=== PATIENT | male | born 1940 | race Caucasian/White ===

== ENCOUNTER 2017-08-30 10:13 | Emergency (ER) | payer MEDICARE, OTHER ==
[2017-08-30] MEDS ORDERED: predniSONE TAB* 20 MG PO ONE (13:24)
[2017-08-30] MEDS ORDERED: Albuterol/Ipratropium NEB.SOL* Albuterol 2.5 MG/Ipratropium 0.5 MG 3 ML INH ONE ×2 (13:24→16:00)
--- NOTE | 2017-08-30 14:38 | RAD ---
INDICATION: Cough COMPARISON: September 23, 2013 TECHNIQUE: PA and lateral dual-energy views were obtained. FINDINGS: Bones/Soft Tissues: There are no acute bony findings. Cardiomediastinal: The cardiomediastinal silhouette is mildly enlarged. Lungs: There are no infiltrates. Pleura: There are no pleural effusions. Other: None IMPRESSION: NO ACTIVE DISEASE.
[2017-08-30 17:34] VITALS: BP 152/87
--- NOTE | 2017-08-30 18:53 | ED ---
Colton Chow Jennifer, scribed for Lev Ness MD on 08/30/17 at 1321 . Shortness of Breath - HPI Summary HPI Summary: The patient is a 77 year old male who presents with shortness of breath and cough that began yesterday. The patient was spray painting his car without masks , and the paint fumes made it difficult to breathe for him. He states his cough produces white phlegm. Patient additionally complains of stuffiness under his chest. He states he uses his nebulizer every morning and night and in between if he has to. The SOB is aggravated by talking, deep breaths, and movement. - History of Current Complaint Chief Complaint: EDShortnessOfBreath Time Seen by Provider: 08/30/17 13:14 Hx Obtained From: Patient Onset/Duration: Sudden Onset, Lasting Days - one day, Still Present, Worse Since Timing: Constant Current Severity: None Aggrevating Factors: Movement, Deep Breaths Alleviating Factors: Oxygen, Other - Nebulizer Associated Signs & Symptoms: Cough (Productive), Chest Pain w/Cough - chest "stuffiness" - Allergy/Home Medications Allergies/Adverse Reactions: Allergies Allergy/AdvReac Type Severity Reaction Status Date / Time Penicillins Allergy Hives Verified 08/30/17 10:27 Home Medications: Home Medications ALPRAZolam TAB* [Xanax TAB*] 0.5 mg PO BID PRN 08/30/17 [History Confirmed 08/30] Atorvastatin* [Lipitor*] 80 mg PO DAILY 08/30/17 [History Confirmed 08/30/17] Hydrochlorothiazide TAB* [Hydrodiuril TAB*] 25 mg PO DAILY 08/30/17 [History Confirmed 08/30/17] Lisinopril TAB* [Prinivil TAB*] 40 mg PO DAILY 08/30/17 [History Confirmed 08/30] Montelukast Sodium TAB* [Singulair TAB*] 10 mg PO DAILY 08/30/17 [History Confirmed 08/30/17] Sotalol TAB* [Betapace 80 MG TAB*] 120 mg PO BID 08/30/17 [History Confirmed ] Warfarin TAB(*) [Coumadin TAB(*)] 5 mg PO SUTUTHSA 08/30/17 [History Confirmed 08/30/17] Warfarin TAB(*) [Coumadin TAB(*)] 7.5 mg PO MOWEFR 08/30/17 [History Confirmed 08/30/17] metFORMIN* [Glucophage 1000 MG TAB *] 1,000 mg PO BID 08/30/17 [History Confirmed 08/30/17] traMADol TAB* [Ultram*] 50 mg PO Q6HR PRN 08/30/17 [History Confirmed 08/30/17] PMH/Surg Hx/FS Hx/Imm Hx Endocrine/Hematology History: Denies: Hx Anticoagulant Therapy, Hx Diabetes, Hx Thyroid Disease Cardiovascular History: Reports: Hx Atrial Fibrillation, Hx Hypercholesterolemia , Hx Hypertension Denies: Hx Pacemaker/ICD Respiratory History: Reports: Hx Asthma, Hx Chronic Obstructive Pulmonary Disease (COPD) GI History: Reports: Hx Gastroesophageal Reflux Disease, Hx Hiatal Hernia, Hx Ulcer, Other GI Disorders - esophogeal dilation History: Reports: Other Problems/Disorders - frequent urination Denies: Hx Renal Disease Musculoskeletal History: Reports: Hx Arthritis, Hx Back Problems Sensory History: Reports: Hx Contacts or Glasses, Hx Hearing Problem - slightly hard of hearing Opthamlomology History: Reports: Hx Contacts or Glasses Neurological History: Denies: Hx Dementia, Hx Seizures Psychiatric History: Denies: Hx Substance Abuse - Surgical History Surgery Procedure, Year, and Place: Pt. denies - Immunization History Date of Tetanus Vaccine: PT STATES UNSURE Date of Influenza Vaccine: 2012 Infectious Disease History: No Infectious Disease History: Denies: Hx Hepatitis, Hx Human Immunodeficiency Virus (HIV), Traveled Outside the [place] in Last 30 Days - Family History Known Family History: Negative: Renal Disease Family History: Reviewed and non-contributory - Social History Alcohol Use: None Alcohol Amount: 4-6 beers per day Substance Use Type: Reports: None Type: Cigarettes Amount Used/How Often: 1/2 pack day Length of Time of Smoking/Using Tobacco: 60 yrs Have You Smoked in the Last Year: Yes Review of Systems Negative: Fever, Chills Negative: Erythema Negative: Sore Throat Positive: Chest Pain - "stuffiness under chest" Positive: Shortness Of Breath, Cough Negative: Abdominal Pain, Vomiting, Nausea Negative: dysuria, flank pain Negative: Myalgia, Edema Negative: Rash Neurological: Negative - Dizziness All Other Systems Reviewed And Are Negative: Yes Physical Exam - Summary Physical Exam Summary: Constitutional: Well-developed, Well-nourished, Alert. (-) Distressed Skin: Warm, Dry HENT: Normocephalic; Atraumatic Eyes: Conjunctiva normal Neck: Musculoskeletal ROM normal neck. (-) JVD, (-) Stridor, (-) Tracheal deviation Cardio: Rhythm regular, rate normal, Heart sounds normal; Intact distal pulses; The pedal pulses are 2+ and symmetric. Radial pulses are 2+ and symmetric. (-) Murmur Pulmonary/Chest wall: Diminished breath sounds. Small amount of inspiratory and expiratory wheezes. (-) Respiratory distress, (-) Rales Abd: Soft, (-) Tenderness, (-) Distension, (-) Guarding, (-) Rebound Musculoskeletal: (-) Edema Lymph: (-) Cervical adenopathy Neuro: Alert, Oriented x3 Psych: Mood and affect Normal Triage Information Reviewed: Yes Vital Signs On Initial Exam: Initial Vitals Temp Pulse Resp BP Pulse Ox 98.1 F 69 20 133/66 92 08/30/17 10:28 08/30/17 10:28 08/30/17 10:28 08/30/17 10:28 08/30/17 10:28 Vital Signs Reviewed: Yes Diagnostics - Vital Signs Vital Signs Temp Pulse Resp BP Pulse Ox 08/30/17 12:30 97.5 F 63 14 148/73 94 08/30/17 10:28 98.1 F 69 20 133/66 92 - Laboratory Lab Statement: Any lab studies that have been ordered have been reviewed, and results considered in the medical decision making process. - Radiology CXR Xray Interpretation: No Acute Changes - NO ACTIVE DISEASE. Dr. Ness has reviewed this report. Radiology Interpretation Completed By: Radiologist Re-Evaluation - Re-Evaluation First Eval Re-Evaluation Time: 17:22 Change: Improved Comment: Patient reports feeling much better and his lung sounds have improved. Course/Dx - Course Course Of Treatment: The patient is a 77 year old male who presents with shortness of breath and cough that began yesterday after he spray painted his car. In the ED course the patient was given duoneb and deltasone. CXR was obtained. The patient reports feeling better, and his lung sounds have improved. Given the option of admission versus going home and being on oxygen for a few days, patient elected to go home. He will wear 2L oxygen during the day for a few days. The patient is diagnosed with COPD exacerbation. I will prescribe Doxycycline and Prednisone. Patient instructed to follow up with PCP in 2-3 days. - Diagnoses Provider Diagnoses: COPD exacerbation Discharge - Sign-Out/Discharge Documenting (check all that apply): Discharge/Admit/Transfer - Discharge Plan Condition: Stable Disposition: HOME Patient Education Materials: COPD (Chronic Obstructive Pulmonary Disease) (ED) Referrals: Joaquin Terrazas MD [Primary Care Provider] - 3 Days Additional Instructions: up with your primary care physician in three days. RETURN TO THE EMERGENCY DEPARTMENT FOR CHANGING OR WORSENING SYMPTOMS The documentation as recorded by the Colton perry Jennifer accurately reflects the service I personally performed and the decisions made by me, Lev Ness MD.
== END 2017-08-30 17:33 | disposition home or self-care (01) ==
LOC: ED 10:13
DX: J44.1 Chronic obstructive pulmonary disease with (acute) exacerbation (principal); I48.91 Unspecified atrial fibrillation; E78.00 Pure hypercholesterolemia, unspecified; I10 Essential (primary) hypertension; K21.9 Gastro-esophageal reflux disease without esophagitis; Z79.01 Long term (current) use of anticoagulants; F17.210 Nicotine dependence, cigarettes, uncomplicated
CPT/HCPCS: 71046; 99283; A9270-GY; J7512

== ENCOUNTER 2018-07-28 19:37 | Inpatient (IN) | payer MEDICARE, OTHER ==
[2018-07-28] MEDS ORDERED: methylPREDNISolone 125 MG* 2 ML VIAL IV ONE (19:56)
[2018-07-28] MEDS ORDERED: Albuterol 0.5% CONC NEB.SOL* 5 MG/ML 20 ml BOT INH ONE (19:56)
--- NOTE | 2018-07-28 20:06 | ED ---
Shortness of Breath - HPI Summary HPI Summary: This pt is a 78 y/o male, with hx of COPD, presenting to [facility] via EMS for worsening SOB today. Pt reports his SOB began last night. He describes associated productive cough with yellow sputum. Pt also notes diaphoresis. Denies fever, vomiting, chest pain. Pt uses a nebulizer at home, and has used it about 5 times today. He used his nebulizer 6 times yesterday. EMS administered duoneb [employer] with mild relief. Pt is on 3L of oxygen at home. Per family member, pt is still a current smoker. - History of Current Complaint Chief Complaint: EDShortnessOfBreath Time Seen by Provider: 07/28/18 19:49 Hx Obtained From: Patient Onset/Duration: Lasting Hours, Still Present, Worse Since - today Timing: Constant Current Severity: Moderate Dyspnea At: Rest Aggrevating Factors: Nothing Alleviating Factors: Oxygen Associated Signs & Symptoms: Cough (Productive) - Allergy/Home Medications Allergies/Adverse Reactions: Allergies Allergy/AdvReac Type Severity Reaction Status Date / Time Penicillins Allergy Hives Verified 07/28/18 19:55 Home Medications: Home Medications Fluticasone NASAL SPRAY 50MCG* [Flonase NASAL SPRAY 50MCG*] 2 spray BOTH NARES DAILY 07/28/18 [History Confirmed 07/28/18] Furosemide TAB* [Lasix TAB*] 40 mg PO DAILY 07/28/18 [History Confirmed 07/28/18 ] Ketoconazole 2 % CREAM (NF) [Nizoral 2% CREAM (NF)] 1 applic TOPICAL BID [History Confirmed 07/28/18] PMH/Surg Hx/FS Hx/Imm Hx Endocrine/Hematology History: Denies: Hx Anticoagulant Therapy, Hx Diabetes, Hx Thyroid Disease Cardiovascular History: Reports: Hx Atrial Fibrillation, Hx Congestive Heart Failure, Hx Hypercholesterolemia, Hx Hypertension Denies: Hx Pacemaker/ICD Respiratory History: Reports: Hx Asthma, Hx Chronic Obstructive Pulmonary Disease (COPD) GI History: Reports: Hx Gastroesophageal Reflux Disease, Hx Hiatal Hernia, Hx Ulcer, Other GI Disorders - esophogeal dilation History: Reports: Other Problems/Disorders - frequent urination Denies: Hx Renal Disease Musculoskeletal History: Reports: Hx Arthritis, Hx Back Problems Sensory History: Reports: Hx Contacts or Glasses, Hx Hearing Problem - slightly hard of hearing Denies: Hx Hearing Aid Opthamlomology History: Reports: Hx Contacts or Glasses Neurological History: Denies: Hx Dementia, Hx Seizures Psychiatric History: Denies: Hx Substance Abuse - Surgical History Surgery Procedure, Year, and Place: Pt. denies - Immunization History Date of Tetanus Vaccine: PT STATES UNSURE Date of Influenza Vaccine: 2012 Infectious Disease History: No Infectious Disease History: Denies: Hx Hepatitis, Hx Human Immunodeficiency Virus (HIV), Traveled Outside the [place] in Last 30 Days - Family History Known Family History: Negative: Renal Disease - Social History Alcohol Use: Weekly Alcohol Amount: 4-6 beers per day Substance Use Type: Reports: None Smoking Status (MU): Current Some Day Smoker Type: Cigarettes Amount Used/How Often: 1/2 pack day Length of Time of Smoking/Using Tobacco: 60 yrs Have You Smoked in the Last Year: Yes Review of Systems Positive: Skin Diaphoresis. Negative: Fever Negative: Chest Pain Positive: Shortness Of Breath, Cough Negative: Vomiting All Other Systems Reviewed And Are Negative: Yes Physical Exam - Summary Physical Exam Summary: Appearance: Obese and elderly male lying in the stretcher without acute distress. Skin: Warm, dry, no obvious rash Eyes: sclera anicteric, no conjunctival pallor ENT: mucous membranes moist, pharynx appears normal Neck: Supple, nontender Respiratory: Lungs with mildly diminished aeration with expiratory wheezing Cardiovascular: Normal S1, S2. No murmurs. Normal distal pulses in tibial and radial bilaterally. Abdomen: Soft, nontender, normal active bowel sounds present Musculoskeletal: Normal, Strength/ROM Intact Neurological: A&Ox3, awake and alert, mentation is normal, speech is fluent and appropriate Psychiatric: affect is normal, does not appear anxious or depressed Triage Information Reviewed: Yes Vital Signs On Initial Exam: Initial Vitals Temp Pulse Resp BP Pulse Ox 98.7 F 70 22 139/64 99 07/28/18 19:46 07/28/18 19:46 07/28/18 19:46 07/28/18 19:46 07/28/18 19:46 Vital Signs Reviewed: Yes Diagnostics - Vital Signs Vital Signs Temp Pulse Resp BP Pulse Ox 07/28/18 19:46 98.7 F 70 22 139/64 99 - Laboratory Result Diagrams: 07/28/18 20:13 07/28/18 20:13 Lab Statement: Any lab studies that have been ordered have been reviewed, and results considered in the medical decision making process. - Radiology Chest XR Radiology Interpretation Completed By: ED Physician Summary of Radiographic Findings: pending official radiology report. - EKG 20:40 Cardiac Rate: NL - at 65 bpm EKG Rhythm: Sinus Rhythm Summary of EKG Findings: Atrial premature complex. Right bundle branch block. Inferior infarct, old. Re-Evaluation - Re-Evaluation First Eval Change: Improved - The patient has improved aeration with less wheezing. He feels symptomatically better. Course/Dx - Course Assessment/Plan: Pt is a 78 y/o male, with hx of COPD, who presents to the ED via EMS for worsening SOB today. Pt reports his SOB began last night. He describes associated productive cough with yellow sputum. Pt also notes diaphoresis. Lab results remarkable for WBC of 14.3, hemoglobin of 11.7, glucose of 159. In the ED course the pt was given albuterol, solu-medrol. Pt with improvement after medications. Pt will be discharged home with follow up from his PCP. Rx given for azithromycin and prednisone. Return precautions given. - Diagnoses Provider Diagnoses: COPD exacerbation Discharge - Sign-Out/Discharge Documenting (check all that apply): Patient Departure - Discharge home Patient Received Moderate/Deep Sedation with Procedure: No - Discharge Plan Condition: Good Disposition: ADMITTED TO [facility] - Billing Disposition and Condition Condition: GOOD Disposition: Admitted to [facility] - Attestation Statements Document Initiated by Manohar: Yes Documenting Scribe: Frannie Peng Provider For Whom Manohar is Documenting (Include Credential): MD Luis Caseyibkendrick Attestation: Frannie Chow, luisibed for Damaso Mathew MD on 07/29/18 at 1428. Scribe Documentation Reviewed: Yes Provider Attestation: The documentation as recorded by the Frannie perry accurately reflects the service I personally performed and the decisions made by , Damaso Mathew MD Status of Scribe Document: Viewed
[2018-07-28 20:22] LABS: ABS Basophils 0.1 10^3/ul (0-0.2); ABS Eosinophils 0.8 10^3/ul (0-0.6); ABS Lymphocytes 2.8 10^3/ul (1.0-4.8); ABS Monocytes 1.5 10^3/ul (0-0.8); ABS Neutrophils 9.1 10^3/ul (1.5-7.7); ABS Nucleated RBC 0 10^3/ul; Eosinophil % 5.6 %; Hematocrit 36 % (36-46); Hemoglobin 11.7 g/dL (14.0-18.0); Lymphocyte % 19.5 %; Mean Corpuscular HGB Conc 33 g/dL (31-36); Mean Corpuscular Hemoglobin 31 pg (27-31); Mean Corpuscular Volume 96 fL (80-94); Mean Platelet Volume 7.4 fL (7.4-10.4); Nucleated Red Blood Cells % 0; Platelet Count 239 10^3/uL (150-450); Red Blood Count 3.73 10^6 /uL (4.18-5.48); Red Cell Distribution Width 14 % (10.5-15); White Blood Count 14.3 10^3/uL (3.5-10.8)
[2018-07-28 20:38] LABS: Albumin 3.9 g/dL (3.2-5.2); Albumin/Globulin Ratio 1.4 (1-3); BUN/Creatinine Ratio 19.5 (8-20); Calcium 9.1 mg/dL (8.6-10.3); EGFR African American 62.9 (>60); Globulin 2.7 g/dL (2-4); Potassium 4.5 mmol/L (3.5-5.0); Total Bilirubin 0.5 mg/dL (0.2-1.0); Total Protein 6.6 g/dL (6.4-8.9)
[2018-07-28 20:40] LABS: Troponin I 0.01 ng/mL (<0.04)
[2018-07-28 21:29] LABS: Influenza A Molecular NEGATIVE (Negative); Influenza B Molecular NEGATIVE (Negative)
[2018-07-28] MEDS ORDERED: Albuterol/Ipratropium NEB.SOL* Albuterol 2.5 MG/Ipratropium 0.5 MG 3 ML INH ONE (23:03)
--- NOTE | 2018-07-28 23:03 | ED ---
Progress - Progress Note Progress Note: 2250 - Patient had been offered admission but initially refused and wanted to be discharged to home. Upon discharge, patient was diaphoretic and SOB. Upon re- evaluation, it was advised that the patient be admitted, the patient is agreeable with admission. Course/Dx - Course Course Of Treatment: 2250 - Patient had been offered admission but initially refused and wanted to be discharged to home. Upon discharge, patient had difficulty walking and was SOB. Upon re-evaluation, it was advised that the patient be admitted, the patient is agreeable with admission. 2250 - Patient had been offered admission but initially refused and wanted to be discharged to home. Upon discharge, patient was diaphoretic and SOB. Upon re-evaluation, it was advised that the patient be admitted, the patient is agreeable with admission. Patient was given fluids, albuterol, levofloxacin 750 mg in 150 ml, magnesium sulfate 2 gm in 50 ml. He was placed on Bipap. 231 - Patient's case was discussed with Dr. Frye, Dr. Frye accepts for admission. - Diagnoses Provider Diagnoses: COPD exacerbation - Provider Notifications Discussed Care Of Patient With: Dariela Frye Time Discussed With Above Provider: 23:19 Instructed by Provider To: Other - 2318 - Patient's case was discussed with Dr. Frye, Dr. Frye accepts for admission. Discharge - Sign-Out/Discharge Documenting (check all that apply): Patient Departure - admit Patient Received Moderate/Deep Sedation with Procedure: No - Discharge Plan Condition: Good Disposition: ADMITTED TO [facility] Prescriptions: Azithromycin TAB* [Zithromax TAB (Z-MONI) 250 mg #6 tabs] 2 tab PO .TODAY, THEN 1 DAILY #1 moni predniSONE [Prednisone 20 MG TAB] 40 mg PO DAILY 6 Days #12 tablet Patient Education Materials: COPD (Chronic Obstructive Pulmonary Disease) (ED) Referrals: Joaquin Terrazas MD [Primary Care Provider] - - Attestation Statements Document Initiated by Scribe: Yes Documenting Scribe: LEVON BRADLEY Provider For Whom Manohar is Documenting (Include Credential): JERRY SCHULZ MD Scribe Attestation: LEVON Chow, scribed for JERRY SCHULZ MD on 07/29/18 at 0003. Status of Scribe Document: Ready
[2018-07-28] MEDS ORDERED: Magnesium Sulfate 2 GM IV* 2 GM/50 ML BAG IVPB ONE (23:04)
[2018-07-28] MEDS ORDERED: Levofloxacin 750 MG IVPREMIX(* 750 MG/150 ML BAG IVPB ONE (23:04)
[2018-07-28] MEDS ORDERED: NS 0.9% 1000 ML** 1,000 ML IV ONE (23:06)
[2018-07-29] MEDS: Albuterol 2.5 MG/3 ML NEB.SOL* (0.083%) INH SCH ×2 (00:26→00:41)
[2018-07-29] MEDS ORDERED: Albuterol 2.5 MG/3 ML NEB.SOL* (0.083%) INH PRN (03:23)
[2018-07-29] MEDS ORDERED: guaiFENesin ER TAB 600 MG PO PRN (03:23)
[2018-07-29] MEDS ORDERED: Dextrose 50% Syringe 50 ML* 25 GM/50 ML SYRINGE IV PUSH PRN (03:39)
[2018-07-29] MEDS ORDERED: Nicotine Inhaler* 10 MG AMP INH PRN (03:41)
[2018-07-29] MEDS ORDERED: Mouth Piece, Nicotine* 1 EACH CARTRIDGE INH ONE (04:00)
--- NOTE | 2018-07-29 06:07 | HP ---
HISTORY AND PHYSICAL: DATE OF ADMISSION: 07/29/18 PRIMARY CARE PROVIDER: Joaquin Terrazas MD. HEALTHCARE PROXY: Ghassan, a friend who lives in the home. CODE STATUS: Full. CHIEF COMPLAINT: Shortness of breath. REASON FOR ADMISSION: COPD exacerbation. SOURCE OF INFORMATION: HPI is obtained from interview of the patient and his daughter. The patient is a fair historian. HISTORY OF PRESENT ILLNESS: This is a 78-year-old man with a past medical history of COPD GOLD 4, on home p.r.n. q.h.s. oxygen; KALEB, on CPAP; hypertension; GERD; hyperlipidemia; history of paroxysmal a trial fibrillation, on anticoagulation; anxiety; chronic low back pain; non-insulin dependent diabete s, who presents to the emergency room with 3 days of worsening shortness of breath. It happened grad ually according to his daughter and he was actually slated to go to his primary care provider tomorro w morning, but the patient felt that his shortness of breath was increasing to the point that he did not feel comfortable at home, so he decided to present to the emergency room. He was using his nebul izers at home, but they did not seem to be helping. He was discharged at the end of May from [facility] for also COPD exacerbation and had tapered off of his prednisone and had complete d his azithromycin and was using just his home inhalers prior to this. He is unsure what the trigger is and believes it has something to do with the weather or pollen and says he gets easily triggered w ith the change of season. He denies any chest pain, palpitations, or orthopnea. No neurologic, GI, , musculoskeletal, or endocrine systems. EMERGENCY ROOM COURSE: The patient's vital signs on presentation, blood pressure is 139/69, pulse ra te 79, oxygen saturation was 95% on 4 L. The patient was briefly placed on BiPAP for increased work of breathing, although was able to be titrated off prior to admission. He is afebrile. Labs were dr flores which show mild leukocytosis to 14.3. A gas was done which shows 7.35, 43, 87, and 97%. BMP was drawn which shows creatinine of 1.33 which is his baseline. A flu test was done which was negative. A chest x-ray was done which showed hyperinflation of the lungs with vascular and interstitial meka ings, but no evidence of acute consolidation and mild cardiomegaly with retrocardiac spaces clear. E KG was done, it showed sinus rhythm in the 70s with interventricular conduction delay consistent with a left bundle-branch and left anterior fascicular block but no evidence of active ischemia. Troponi ns were negative on admission. Because the patient briefly required BiPAP and he and his family felt uncomfortable to return to home in the setting of worsening shortness of breath, the patient was adm itted for observation status for presumed COPD exacerbation. PAST MEDICAL HISTORY: 1. COPD, on home p.r.n. oxygen q.h.s. 2. KALEB, on CPAP. 3. Hypertension. 4. GERD. 5. Hyperlipidemia. 6. History of paroxysmal atrial fibrillation, on anticoagulation. 7. Anxiety. 8. Chronic low back pain. 9. Wzc-ixvsgss-mrdjgsdwm diabetes. 10. CKD, stage 2 to 3. PAST SURGICAL HISTORY: Was not obtained. MEDICATIONS: The patient is on: 1. Albuterol 2 puffs inhaled q.6 hours. 2. Lisinopril 40 mg p.o. daily. 3. Albuterol nebs q.4 hours p.r.n. 4. Atorvastatin 80 mg p.o. daily. 5. Fluticasone nasal spray 2 sprays daily to both nares. 6. Fluticasone and salmeterol inhaler 1 puff inhaled b.i.d. 7. Furosemide 40 mg p.o. daily. 8. Guaifenesin 600 mg p.o. b.i.d. 9. Metformin 1000 mg p.o. b.i.d. 10. Montelukast 10 mg p.o. daily. 11. Omeprazole 40 mg p.o. b.i.d. 12. Sotalol 120 mg p.o. b.i.d. 13. Spiriva 1 cap inhaled daily. 14. Warfarin 2.5 mg on Saturday and Saturday and 5 mg on Saturday, Saturday, Saturday, , and . ALLERGIES: He is allergic to PENICILLIN, shortness of breath. FAMILY HISTORY: His mother is from heart disease. His father is from an unknown i llness. SOCIAL HISTORY: The patient lives at home with his and a friend Ghassan, who is his healthcare prox y. His daughter lives close by and is involved with his care. He has an [id number] history. He i s a current half pack a day smoker and has not smoked in the last 4 days. He drinks 4 to 6 beers per week. He has no history of illicit drug use. REVIEW OF SYSTEMS: As per HPI and a 10-point review of systems was done. PHYSICAL EXAMINATION GENERAL: This is an obese gentleman, in no distress, resting with CPAP in place, can speak to me in full sentences, although minimally interactive given he is on CPAP. No increased work of breathing. VITAL SIGNS: At the time of examination, blood pressure 139/69, heart rate 79, respiratory rate 18, oxygen saturation 95% on CPAP sleeping. HEENT: Normocephalic, atraumatic. Sclerae anicteric. He has moist mucous membranes. NECK: Supple, thick with no cervical lymphadenopathy. RESPIRATORY: Has distant lung sounds with diffuse rhonchi as well as expiratory wheezing heard in bi lateral lower lung elder. No focal consolidation. CARDIAC: He has regular rate and rhythm with 2/6 systolic ejection murmur in the right upper sternal border. GI: His belly is distended, but soft, nontender with normoactive bowel sounds. SKIN: He has chronic venous stasis in bilateral lower extremities, otherwise no rashes or lesions. MUSCULOSKELETAL: Full range of motion in all 4 extremities. EXTREMITIES: He has 1+ nonpitting edema to bilateral lower extremities. NEUROLOGIC: Cranial nerves II through XII are intact with no focal deficits, and he is A and O x3. DIAGNOSTICS STUDIES/LAB DATA: White blood cell count is 14.3, his hemoglobin is 11.7, his hematocri t is 36, his platelets are 239. BMP shows sodium of 142, potassium 4.5, chloride 107, carbon dioxide 26. BUN 26, creatinine 1.3. Glucose 159. Influenza A and B were negative. LFTs: AST 14, ALT 14, alkaline phosphatase 62. ABG was done which shows 7.35 pH, pCO2 of 43, pO2 of 87, and oxygen satura tion 97.5%. Troponin 0.01. EKG was done that showed sinus rhythm in the 70s with interventricular conduction delay, left bundle- branch block, and left anterior fascicular block. Chest x-ray was done that showed hyperinflation of lungs with vascular and interstitial markings with no evidence of acute consolidation, with mild car diomegaly. ASSESSMENT AND PLAN: This is a 78-year-old man with a past medical history of chronic obstructive pu lmonary disease, GOLD stage 3 to 4, on p.r.n. oxygen; obstructive sleep apnea, on CPAP; hypertension; chronic kidney disease stage 2 to 3; gastroesophageal reflux disease; hyperlipidemia; history of par oxysmal atrial fibrillation, on anticoagulation; anxiety; and zap-lgfvpif-jqvlnahxz diabetes, who pre sents to the emergency room with shortness of breath for 3 days in the setting of ongoing tobacco use and found to have chronic obstructive pulmonary disease exacerbation, likely secondary to bronchitis , trigger unknown at this time, although suspect tobacco as trigger. 1. Chronic obstructive pulmonary disease, likely triggered by tobacco use or allergies. This is his second chronic obstructive pulmonary disease exacerbation this year. Consider consultation with pul sales representative uniforms. The patient reports he may have one at [facility], although he is not sure. He received me thylprednisolone 125 mg. We will increase his p.o. prednisone to 60 mg starting tomorrow. At this t dulce, I will hold on antibiotics as there is no clear indication for such. He is optimized on his robert e inhalers with long-acting muscarinic agent, long-acting beta agonist, inhaled corticosteroid, and a short-acting beta agonist. We will continue to offer these, and he will be kept on p.r.n. nasal can nula. 2. Tobacco use disorder. The patient will be offered nicotine replacement therapy with nicotine inh aler. Encouraged cessation. I suspect that his re-presentations are secondary to continued tobacco use. 3. Obstructive sleep apnea. The patient will remain on CPAP q.h.s. His home setting he thinks is a round 10. We will continue him at 8. 4. Hypertension. We will continue Lasix and lisinopril. 5. Paroxysmal atrial fibrillation. We will continue his sotalol and warfarin and check INR. He haider l be kept on tele. 6. Gastroesophageal reflux disease. We will continue his home meds. 7. Rct-itphncj-hmjjarzep diabetes. The patient will remain on his home metformin. He will be placed on point of care glucose with meals and offered sliding scale lispro as needed for correction. 8. Pain. He will be offered Tylenol. 9. Chronic kidney disease. Creatinine is 1.3. This is consistent with his baseline. He has no israel dence of acute kidney injury. 10. DVT prophylaxis: The patient is on warfarin and has had therapeutic INR as outpatient. We will check on hospital day 1 and can bridge as needed. 11. FEN: He is on a carbohydrate consistent diet. 12. Disposition: He is stable for the floor for admission for observation and can be discharged to home if his breathing has improved significantly with nebs and prednisone. Would encourage followup and establishing care with coat agent if he has not already done so and strongly encourage smoking cessation. 13. Code status: Full. TIME SPENT: Thirty minutes was spent on the planning of this admission with over half of that spent directly at the bedside with the patient providing direct patient care. Plan of care was discussed with the patient and his family who are in agreement with the admission. His primary care will be contacted on this hospitalization. [id number]/[facility] #: [id number]
[2018-07-29 06:54] LABS: INR 2.33 (0.77-1.02)
[2018-07-29] MEDS: Mometasone/Formoter 200/5 MDI INH SCH ×2 (08:36→20:10)
[2018-07-29] MEDS: Tiotropium CAP.INH* CAP.INH/18 MCG (USE ORDER SET !) INH SCH (08:36)
[2018-07-29] MEDS: Montelukast Sodium TAB* 10 MG PO SCH (08:40)
[2018-07-29] MEDS: predniSONE TAB* 20 MG PO SCH (08:40)
[2018-07-29] MEDS: metFORMIN* 1,000 MG TAB PO SCH ×2 (08:40→20:57)
[2018-07-29] MEDS: Pantoprazole TAB * 40 MG TAB PO SCH ×2 (08:41→20:57)
[2018-07-29] MEDS: Furosemide TAB* 40 MG PO SCH (08:41)
[2018-07-29] MEDS: Lisinopril TAB* 10 MG PO SCH (08:41)
[2018-07-29] MEDS: Insulin LISPRO* 1 UNITS UNIT SUBCUT SCH ×4 (08:44→20:58)
[2018-07-29] MEDS: Sotalol TAB* 80 MG PO SCH ×2 (08:51→20:57)
[2018-07-29] MEDS: Fluticasone NASAL SPRAY 50MCG* 16 gm SPRAY BTL BOTH NARES SCH (08:52)
[2018-07-29] MEDS ORDERED: Spiriva Inhaler DEVICE* 1 EACH DEVICE INH ONE (09:00)
[2018-07-29] MEDS ORDERED: Atorvastatin* 80 MG TAB PO SCH (09:00)
--- NOTE | 2018-07-29 09:37 | PN ---
Subjective Date of Service: 07/29/18 Interval History: Patient continues to feel short of breath, but feels some relief compared to what he was experiencing at home. He has had increase in sputum production for the last 4+ days which is yellow colored. He typically has sputum production at baseline but it is typically white or clear. He additionally notes increased sinus congestion, which is a chronic issue for him. He also notes that for the last several months after most meals he experiences upper abdominal "tightness. " Otherwise denies abd pain at time of evaluation. He denies chest pain, headache, visual changes, palpitations, nausea, vomiting. Since his discharge for COPD exacerbation in May, he has been using 2 L at home. He is on 3L at time of evaluation but is easily short of breath with little exertion, including repositioning in bed per nursing. Objective Active Medications: Albuterol (Ventolin 2.5 Mg/3 Ml Neb.Deborah*) 2.5 mg INH Q4H PRN PRN Reason: WHEEZING Atorvastatin Calcium (Lipitor*) 80 mg PO DAILY [facility] Last Admin: 07/29/18 08:41 Dose: 80 mg Dextrose (D50w Syringe 50 Ml*) 12.5 gm IV PUSH .FOR FS < 60 - SS PRN PRN Reason: FS < 60 Fluticasone Propionate (Flonase Nasal [place] 50mcg*) 2 spray BOTH NARES DAILY [facility] Last Admin: 07/29/18 08:52 Dose: 2 spray Furosemide (Lasix Tab*) 40 mg PO DAILY [facility] Last Admin: 07/29/18 08:41 Dose: 40 mg Guaifenesin (Mucinex*) 600 mg PO BID PRN PRN Reason: congestion Last Admin: 07/29/18 04:45 Dose: 600 mg Insulin Human Lispro (Humalog*) 0 units SUBCUT ACHS [facility]; Protocol Last Admin: 07/29/18 08:44 Dose: 3 units Lisinopril (Prinivil Tab*) 40 mg PO DAILY [facility] Last Admin: 07/29/18 08:41 Dose: 40 mg Metformin HCl (Glucophage*) 1,000 mg PO BID [facility] Last Admin: 07/29/18 08:40 Dose: 1,000 mg Mometasone Furoate/Formoterol Fumar (Dulera 200/5 Mdi*) 2 puff INH BID [facility] Last Admin: 07/29/18 08:36 Dose: 2 puff Montelukast Sodium (Singulair Tab*) 10 mg PO DAILY [facility] Last Admin: 07/29/18 08:40 Dose: 10 mg Nicotine (Nicotine Inhaler*) 10 mg INH Q2H PRN PRN Reason: CRAVING Pantoprazole Sodium (Protonix Tab*) 40 mg PO BID [facility] Last Admin: 07/29/18 08:41 Dose: 40 mg Prednisone (Deltasone Tab*) 60 mg PO DAILY [facility] Last Admin: 07/29/18 08:40 Dose: 60 mg Sotalol HCl (Betapace Tab*) 120 mg PO BID [facility] Last Admin: 07/29/18 08:51 Dose: 120 mg Tiotropium [place] (Spiriva Cap.Inh*) 1 cap INH DAILY [facility] Last Admin: 07/29/18 08:36 Dose: 1 cap Warfarin Sodium (Coumadin Tab(*)) 2.5 mg PO MoFr@1700 [facility]I; Protocol Warfarin Sodium (Coumadin Tab(*)) 5 mg PO SuTuWeThSa@1700 [facility]I; Protocol Vital Signs - 8 hr 07/29/18 07/29/18 07/29/18 02:00 02:04 02:33 Temperature Pulse Rate 68 66 60 Respiratory 19 19 16 Rate Blood Pressure 109/59 112/73 (mmHg) O2 Sat by Pulse 98 98 97 Oximetry 07/29/18 07/29/18 07/29/18 03:00 03:03 03:33 Temperature Pulse Rate 70 65 67 Respiratory 23 17 17 Rate Blood Pressure 109/70 91/55 (mmHg) O2 Sat by Pulse 96 97 93 Oximetry 07/29/18 07/29/18 07/29/18 04:01 04:07 04:15 Temperature 97 F 97.4 F Pulse Rate 63 66 72 Respiratory 19 17 22 Rate Blood Pressure 91/55 120/63 (mmHg) O2 Sat by Pulse 94 97 97 Oximetry 07/29/18 07/29/18 07:15 08:49 Temperature 98.2 F Pulse Rate 76 76 Respiratory 24 24 Rate Blood Pressure 140/62 (mmHg) O2 Sat by Pulse 97 97 Oximetry Oxygen Devices in Use Now: Nasal Cannula Appearance: Obese, white male sitting upright over side of bed, appearing in mild distress, breathing with pursed lips; daughter at bedside Eyes: No Scleral Icterus, PERRLA Ears/Nose/Mouth/Throat: Mucous Membranes Moist Neck: - - neck supple and without JVD Respiratory: Symmetrical Chest Expansion and Respiratory Effort, - - Rhonchi throughout, minimal crackles in left lower lobe, expiratory wheezing bilaterally Cardiovascular: NL Sounds; No Murmurs; No JVD, RRR Abdominal: - - abdomen obese, soft, nontender, nondistended Extremities: No Edema, No Clubbing, Cyanosis, - - neg calf tenderness Skin: No Rash or Ulcers, - - skin is warm, dry, intact Neurological: Alert and Oriented x 3, NL Muscle Strength and Tone Result Diagrams: 07/28/18 20:13 07/28/18 20:13 Assess/Plan/Problems-Billing Assessment: 78 yo male with PMHx significant for COPD on 2L NC at home, KALEB on CPAP, paroxysmal afib on warfarin, DMT2, and HTN who presents with increasing shortness of breath and sputum production x 3-4. He - Patient Problems (1) Acute and chronic respiratory failure with hypoxia Code(s): J96.21 - ACUTE AND CHRONIC RESPIRATORY FAILURE WITH HYPOXIA SNOMED Code(s): 57478360 Comment: -likely secondary to COPD exacerbation, although possibly an underlying pneumonia vs pulmonary edema as patient does have CHFrEF; ordered CT chest and BNP -PE unlikely as patient is on warfarin with INR 2.33 -required bipap in ED, now on 3L; requires 2L at home; to attempt to wean O2 today -ABG wnl, without hypoxemia -shortness of breath with little exertion (2) COPD exacerbation Code(s): J44.1 - CHRONIC OBSTRUCTIVE PULMONARY DISEASE W (ACUTE) EXACERBATION SNOMED Code(s): 788098168 Comment: -likely caused by continued tobacco use -continue prednisone 60 mg, scheduling duonebs q4h while awake -continue home spiriva, prn ventolin, dulera, and singulair -ordered sputum culture -starting roflumilast outpatient would have benefit as this is his second exacerbation in 2 months (3) Diabetes Code(s): E11.9 - TYPE 2 DIABETES MELLITUS WITHOUT COMPLICATIONS SNOMED Code(s) : 21032820 Comment: -continue SS lispro with home metformin (4) HTN (hypertension) Code(s): I10 - ESSENTIAL (PRIMARY) HYPERTENSION SNOMED Code(s): 45893039 Comment: - normotensive today - continue home lisinopril (5) GERD (gastroesophageal reflux disease) Code(s): K21.9 - GASTRO-ESOPHAGEAL REFLUX DISEASE WITHOUT ESOPHAGITIS SNOMED Code(s): 173120386 Comment: -patient is describing upper abd "tightness" after most meals, sounds consistent with GERD but patient is already taking omeprazole 40 mg bid, will continue this -perhaps outpatient EGD (6) PAF (paroxysmal atrial fibrillation) Code(s): I48.0 - PAROXYSMAL ATRIAL FIBRILLATION SNOMED Code(s): 557449482 Comment: - normal rhythm today - INR 2.33 at admission - continue home sotalol and warfarin (7) KALEB (obstructive sleep apnea) Code(s): G47.33 - OBSTRUCTIVE SLEEP APNEA (ADULT) (PEDIATRIC) SNOMED Code(s): 25826583 Comment: - Continue CPAP (8) CKD (chronic kidney disease) Code(s): N18.9 - CHRONIC KIDNEY DISEASE, UNSPECIFIED SNOMED Code(s): 840539736 Comment: -CKD stage 2-3 -Cr appears to be at baseline -continue lisinopril (9) DVT prophylaxis Code(s): QFL0802 - SNOMED Code(s): 747369226 Comment: - on warfarin at home, will continue, no additional prophylaxis required (10) Full code status Code(s): Z78.9 - OTHER SPECIFIED HEALTH STATUS SNOMED Code(s): 688872700
[2018-07-29] MEDS: Albuterol/Ipratropium NEB.SOL* Albuterol 2.5 MG/Ipratropium 0.5 MG 3 ML INH SCH ×4 (11:33→23:21)
[2018-07-29] MEDS: Warfarin TAB(*) 5 MG PO SCH (16:36)
--- NOTE | 2018-07-29 22:04 | CONS ---
PULMONARY CONSULTATION REPORT: DATE OF CONSULT: 07/29/18 CONSULTATION REQUESTED BY: BRITTENY Arriola REASON FOR CONSULT: Evaluation of recurrent COPD exacerbation. HISTORY OF PRESENT ILLNESS: The patient is a 78-year-old obese male, smoker with a history of stage IV COPD, on home O2, KALEB on CPAP, hypertension, GERD, recently hospitalized for acute COPD exacerbation in May. The patient has been doing well until recently when he started having worsening shortness of breath over the past 3 days since weather change. His symptoms did not improve. He decided to come into the emergency room for further evaluation. The patient was discharged recently for COPD exacerbation with prednisone taper , has completed antibiotics and prednisone prior to the presentation. He reports his shortness of breath has been worsening since last spring. He reports exposure to fumes and strong chemicals. He has been working with his car on painting. The patient reports history of recurrent COPD exacerbations in the past. The patient reports mostly dry cough. The patient denies significant sputum production. Denies chest pain, palpitations, orthopnea. Denies neurologic, , or GI symptoms. The patient noted to be in significant distress on arrival in the emergency room and was placed on the BiPAP given increased work of breathing. He also required O2 at 4 L, which was later tapered off. Further evaluation in the emergency room included labs, which showed mildly elevated leukocyte count. Blood gas analysis showed pH of 7.35, PCO2 43, PO2 87, O2 sat 97%. Chest x-ray was done. I have personally reviewed the images - the patient with evidence of hyperinflation with interstitial prominence. EKG showed left bundle branch block with no acute ST-T wave changes. The patient's BNP was mildly elevated. The patient was seen and examined at bedside. The patient reports slight improvement in shortness of breath. The patient denies significant cough. No fever since admission. PAST MEDICAL HISTORY: 1. COPD on home O2. 2. KALEB on CPAP. 3. Obesity. 4. GERD. 5. Hypertension. 6. Dyslipidemia. 7. Paroxysmal atrial fibrillation, on anticoagulation. 8. Anxiety. 9. Chronic low back pain. 10. Non-insulin dependent diabetes mellitus. 11. Chronic kidney disease stage II to III. PAST SURGICAL HISTORY: The patient denies any surgeries. MEDICATIONS: 1. Albuterol. 2. Lisinopril. 3. Atorvastatin. 4. Fluticasone-salmeterol. 5. Furosemide. 6. Guaifenesin. 7. Metformin. 8. Montelukast. 9. Omeprazole. 10. Sotalol. 11. Spiriva. 12. Warfarin. ALLERGIES: PENICILLIN. FAMILY HISTORY: Mother from heart disease. Father from unknown illness. SOCIAL HISTORY: Lives at home with and friend, Ghassan who is his healthcare proxy. The patient's daughter lives close by and is also involved in his care. He has 80-pack year smoking history, continues to smoke half a pack per day, has not smoked 4 days prior to presentation. Drinks 4 to 6 beers per week. No illicit drug abuse. REVIEW OF SYSTEMS: All 12-systems reviewed and as per HPI. PHYSICAL EXAM: The patient is in bed, in no apparent distress. Vital Signs: Temperature 98, pulse 72 beats per minute, respiratory rate 18 per minute, O2 sat 97% on 3 L, blood pressure 118/65. HEENT: Pupils equal, reactive to light. Mucous membranes moist. Lungs: Diminished air entry bilaterally. Significant wheeze on auscultation bilaterally. Cardiovascular: S1, S2 present. Abdomen: Obese, bowel sounds present, nontender, nondistended. Extremities: Trace edema present. Skin: No rash or bruise. Neuro: Alert, awake, oriented x3. No focal deficits. DIAGNOSTIC STUDIES/LAB DATA: WBC count 14.3, hemoglobin 11.7, hematocrit 36, platelet count 239. Blood gas analysis show pH of 7.35, PCO2 of 43, PO2 87, bicarbonate 23 on 35% FiO2. Sodium 142, potassium 4.5, chloride 107, bicarb 26, BUN 26, creatinine 1.33. BNP 188. Influenza A and B are negative. Gram-stain negative to date. Blood cultures negative to date. CT scan of the chest was personally reviewed by me - no acute airspace opacities concerning for pneumonia. Evidence of mild volume loss in the right middle lobe and in lingular segment. No suspicious nodules or masses noted. IMPRESSION AND RECOMMENDATIONS: 78-year-old obese male with significant smoking history, continues to smoke with significant chronic obstructive pulmonary disease possibly with chronic O2 usage presented with worsening shortness of breath, being treated for acute chronic obstructive pulmonary disease exacerbation. 1. Acute chronic obstructive pulmonary disease exacerbation. 2. Acute on chronic hypoxemic respiratory failure. 3. The patient also has a history of congestive heart failure with slightly elevated brain natriuretic peptide, which could also be contributing to shortness of breath. He does have elevated white count. I suspect this is from bronchitis than pneumonia. He continues to smoke, which might be resulting in worsening lung capacity and frequent exacerbations. I agree with adding roflumilast. I agree with current plan with steroids, bronchodilators. He does have evidence of mild edema in the lower extremities with elevated brain natriuretic peptide; however, does not appear to be in acute fluid overload. I agree with Lasix at current dose. He is on p.o. prednisone. If there was improvement in wheezing or shortness of breath by tomorrow, will change to IV. 4. Titrate FiO2 to his baseline level. 5. Smoking cessation education and counseling performed at bedside. Thank you for allowing me to participate in the care of your patient. Will follow up with you. [id number]/[facility] #: [id number] BELINDA
[2018-07-30] MEDS ORDERED: Oxymetazoline 0.05% NASAL SPR* 15 ML BTL BOTH NARES ONE (03:06)
[2018-07-30] MEDS: Albuterol/Ipratropium NEB.SOL* Albuterol 2.5 MG/Ipratropium 0.5 MG 3 ML INH SCH ×6 (03:09→23:55)
[2018-07-30] MEDS ORDERED: Nasal Wash (NF) 473 ML BTL INTRANASAL PRN (03:30)
[2018-07-30] MEDS ORDERED: VICKS BOTH NARES PRN (05:07)
[2018-07-30 06:05] LABS: Hematocrit 33 % (36-46); Hemoglobin 10.6 g/dL (14.0-18.0); Mean Corpuscular HGB Conc 33 g/dL (31-36); Mean Corpuscular Hemoglobin 31 pg (27-31); Mean Corpuscular Volume 96 fL (80-94); Mean Platelet Volume 7.9 fL (7.4-10.4); Platelet Count 222 10^3/uL (150-450); Red Cell Distribution Width 15 % (10.5-15); White Blood Count 17.1 10^3/uL (3.5-10.8)
[2018-07-30 06:09] LABS: ABS Basophils 0.1 10^3/ul (0-0.2); ABS Eosinophils 0 10^3/ul (0-0.6); ABS Lymphocytes 2.1 10^3/ul (1.0-4.8); ABS Monocytes 1.6 10^3/ul (0-0.8); ABS Neutrophils 13.4 10^3/ul (1.5-7.7); ABS Nucleated RBC 0 10^3/ul; Eosinophil % 0.1 %; Lymphocyte % 12.5 %; Nucleated Red Blood Cells % 0
[2018-07-30 06:29] LABS: BUN/Creatinine Ratio 29.7 (8-20); Calcium 9.4 mg/dL (8.6-10.3); EGFR African American 65.8 (>60); EGFR Non-African American 54.4 (>60); Potassium 4.4 mmol/L (3.5-5.0)
[2018-07-30] MEDS: Insulin LISPRO* 1 UNITS UNIT SUBCUT SCH ×4 (07:26→20:50)
[2018-07-30] MEDS: Fluticasone NASAL SPRAY 50MCG* 16 gm SPRAY BTL BOTH NARES SCH (07:40)
[2018-07-30] MEDS: Sotalol TAB* 80 MG PO SCH ×2 (07:40→20:44)
[2018-07-30] MEDS: predniSONE TAB* 20 MG PO SCH (07:41)
[2018-07-30] MEDS: Lisinopril TAB* 10 MG PO SCH (07:41)
[2018-07-30] MEDS: Pantoprazole TAB * 40 MG TAB PO SCH ×2 (07:42→20:45)
[2018-07-30] MEDS: Montelukast Sodium TAB* 10 MG PO SCH (07:42)
[2018-07-30] MEDS: Furosemide TAB* 40 MG PO SCH (07:42)
[2018-07-30] MEDS: metFORMIN* 1,000 MG TAB PO SCH ×2 (07:42→20:45)
[2018-07-30] MEDS: Tiotropium CAP.INH* CAP.INH/18 MCG (USE ORDER SET !) INH SCH (08:05)
[2018-07-30] MEDS: Mometasone/Formoter 200/5 MDI INH SCH ×2 (08:05→20:12)
--- NOTE | 2018-07-30 14:33 | PN ---
Subjective Date of Service: 07/30/18 Interval History: Patient remains short of breath at rest. He denies chest pain, chest palpitations, calf tenderness, abd pain, nausea, vomiting. His primary complaint is his nasal congestion, which is a chronic issue. He has vicks nasal spray which he uses daily. He has chronic sinusitis which he is unable to have surgery for due to the cardiac risk of performing surgery. Objective Active Medications: Albuterol (Ventolin 2.5 Mg/3 Ml Neb.Deborah*) 2.5 mg INH Q4H PRN PRN Reason: WHEEZING Albuterol/Ipratropium (Duoneb (Albuterol 2.5 Mg/Ipratropium 0.5 Mg)) 1 neb INH [id number] AWAKE [facility] Last Admin: 07/30/18 11:54 Dose: 1 neb Atorvastatin Calcium (Lipitor*) 80 mg PO BEDTIME [facility] Dextrose (D50w Syringe 50 Ml*) 12.5 gm IV PUSH .FOR FS < 60 - SS PRN PRN Reason: FS < 60 Fluticasone Propionate (Flonase Nasal [place] 50mcg*) 2 spray BOTH NARES DAILY [facility] Last Admin: 07/30/18 07:40 Dose: 2 spray Furosemide (Lasix Tab*) 40 mg PO DAILY [facility] Last Admin: 07/30/18 07:42 Dose: 40 mg Guaifenesin (Mucinex*) 600 mg PO BID PRN PRN Reason: congestion Last Admin: 07/29/18 04:45 Dose: 600 mg Insulin Human Lispro (Humalog*) 0 units SUBCUT ACHS [facility]; Protocol Last Admin: 07/30/18 12:20 Dose: 2 units Lisinopril (Prinivil Tab*) 40 mg PO DAILY [facility] Last Admin: 07/30/18 07:41 Dose: 40 mg Metformin HCl (Glucophage*) 1,000 mg PO BID [facility] Last Admin: 07/30/18 07:42 Dose: 1,000 mg Mometasone Furoate/Formoterol Fumar (Dulera 200/5 Mdi*) 2 puff INH BID [facility] Last Admin: 07/30/18 08:05 Dose: 2 puff Montelukast Sodium (Singulair Tab*) 10 mg PO DAILY [facility] Last Admin: 07/30/18 07:42 Dose: 10 mg Nicotine (Nicotine Inhaler*) 10 mg INH Q2H PRN PRN Reason: CRAVING Pto:Vicks Nasal 1 dose BOTH NARES DAILY PRN PRN Reason: CONGESTION Pantoprazole Sodium (Protonix Tab*) 40 mg PO BID [facility] Last Admin: 07/30/18 07:42 Dose: 40 mg Prednisone (Deltasone Tab*) 60 mg PO DAILY [facility] Last Admin: 07/30/18 07:41 Dose: 60 mg Sotalol HCl (Betapace Tab*) 120 mg PO BID [facility] Last Admin: 07/30/18 07:40 Dose: 120 mg Tiotropium [place] (Spiriva Cap.Inh*) 1 cap INH DAILY [facility] Last Admin: 07/30/18 08:05 Dose: 1 cap Warfarin Sodium (Coumadin Tab(*)) 2.5 mg PO MoFr@1700 [facility]; Protocol Warfarin Sodium (Coumadin Tab(*)) 5 mg PO SuTuWeThSa@1700 [facility]; Protocol Last Admin: 07/29/18 16:36 Dose: 5 mg Vital Signs - 8 hr 07/30/18 07/30/18 07/30/18 07:24 08:00 08:03 Temperature 97.0 F Pulse Rate 53 52 Respiratory 20 18 Rate Blood Pressure 129/68 (mmHg) O2 Sat by Pulse 99 98 98 Oximetry 07/30/18 11:48 Temperature Pulse Rate 55 Respiratory 16 Rate Blood Pressure (mmHg) O2 Sat by Pulse 98 Oximetry Oxygen Devices in Use Now: Nasal Cannula Appearance: Obese white male sitting over side of hospital bed, appearing to breathe with pursed lips Eyes: No Scleral Icterus, PERRLA Ears/Nose/Mouth/Throat: Mucous Membranes Moist Neck: - - Neck is supple, no JVD Respiratory: Symmetrical Chest Expansion and Respiratory Effort, - - Lungs with expiratory wheezing in lower and middle regions; rhonchi throughout Cardiovascular: NL Sounds; No Murmurs; No JVD, RRR Abdominal: - - Abdomen obese, soft, nontender, nondistended Extremities: No Clubbing, Cyanosis, - - +1 pitting edema to LLE up to knee; no edema to RLE Skin: No Rash or Ulcers, - - Skin is warm, dry, intact Neurological: Alert and Oriented x 3, NL Muscle Strength and Tone Result Diagrams: 07/30/18 05:42 07/30/18 05:42 Microbiology and Other Data: Microbiology 07/28/18 23:44 Aerobic Blood Culture - Preliminary Blood Venous No Growth Day 1 Anaerobic Blood Culture - Preliminary No Growth Day 1 07/28/18 23:35 Aerobic Blood Culture - Preliminary Blood Venous No Growth Day 1 Anaerobic Blood Culture - Preliminary No Growth Day 1 07/29/18 09:50 Gram Stain - Final Sputum Assess/Plan/Problems-Billing Assessment: 78 yo male with PMHx significant for COPD on 2L NC at home, KALEB on CPAP, paroxysmal afib on warfarin, DMT2, and HTN who presents with increasing shortness of breath and sputum production x 3-4. He - Patient Problems (1) Acute and chronic respiratory failure with hypoxia Code(s): J96.21 - ACUTE AND CHRONIC RESPIRATORY FAILURE WITH HYPOXIA SNOMED Code(s): 62581216 Comment: -likely secondary to COPD exacerbation, although possibly an underlying pneumonia vs pulmonary edema as patient does have CHFrEF -BNP minimally elevated, CHF likely not contributing at this time -Chest CT demonstrates COPD with pattern of emphysema, no underlying infection; Chest CT does identify pulmonary HTN, this is likely due to COPD -PE unlikely as patient is on warfarin with INR 2.33 -required bipap in ED, now on 3L; requires 2L at home; to attempt to wean O2 today -ABG wnl at admission, without hypoxemia (2) COPD exacerbation Code(s): J44.1 - CHRONIC OBSTRUCTIVE PULMONARY DISEASE W (ACUTE) EXACERBATION SNOMED Code(s): 089624267 Comment: -likely caused by continued tobacco use, discussed cessation and daughter encourages at bedside -changing prednisone 60mg to IV solumedrol 40mg BID per Dr. Maya's rec -continue scheduled duonebs q4h while awake, home spiriva, prn ventolin, dulera , and singulair -sputum culture is pending -starting roflumilast outpatient would have benefit as this is his second exacerbation in 2 months (3) Unilateral edema of lower extremity Code(s): R60.0 - LOCALIZED EDEMA SNOMED Code(s): 673178003 Comment: -left lower extremity pitting edema, ordered doppler to r/o dvt (4) Nasal congestion due to prolonged use of decongestants Current Visit: Yes Status: Acute Code(s): J31.0 - CHRONIC RHINITIS; T48.5X1A - POISONING BY OTH BLOX-LVP-NAFU DRUGS, ACCIDENTAL, INIT SNOMED Code( s): 67272348 Comment: -patient uses vicks sinex nasal spray daily -patient likely has rhinitis medicamentosa, in addition to any allergic rhinitis or sinusitis he may have had prior -this should be followed up with his PCP at discharge because patient appears to have poor ability to respire through his nose, limiting effect of nasal cannula at home (5) Diabetes Code(s): E11.9 - TYPE 2 DIABETES MELLITUS WITHOUT COMPLICATIONS SNOMED Code(s) : 31036458 Comment: -continue SS lispro with home metformin (6) HTN (hypertension) Code(s): I10 - ESSENTIAL (PRIMARY) HYPERTENSION SNOMED Code(s): 83389396 Comment: - normotensive today - continue home lisinopril (7) GERD (gastroesophageal reflux disease) Code(s): K21.9 - GASTRO-ESOPHAGEAL REFLUX DISEASE WITHOUT ESOPHAGITIS SNOMED Code(s): 992007243 Comment: -patient is described upper abd "tightness" after most meals, sounds consistent with GERD but patient is already taking omeprazole 40 mg bid, will continue this -perhaps outpatient EGD (8) PAF (paroxysmal atrial fibrillation) Code(s): I48.0 - PAROXYSMAL ATRIAL FIBRILLATION SNOMED Code(s): 296747342 Comment: - normal rhythm today - INR 2.33 at admission - continue home sotalol and warfarin (9) KALEB (obstructive sleep apnea) Code(s): G47.33 - OBSTRUCTIVE SLEEP APNEA (ADULT) (PEDIATRIC) SNOMED Code(s): 68559899 Comment: - Continue CPAP (10) CKD (chronic kidney disease) Code(s): N18.9 - CHRONIC KIDNEY DISEASE, UNSPECIFIED SNOMED Code(s): 134156180 Comment: -CKD stage 2-3 -Cr appears to be at baseline -continue lisinopril (11) DVT prophylaxis Code(s): DSG5670 - SNOMED Code(s): 080981295 Comment: - on warfarin at home, will continue, no additional prophylaxis required (12) Full code status Code(s): Z78.9 - OTHER SPECIFIED HEALTH STATUS SNOMED Code(s): 395574767
[2018-07-30] MEDS: methylPREDNISolone SOD 40 MG* 1 ML VIAL IV SCH (17:15)
[2018-07-30] MEDS: Warfarin TAB(*) 5 MG PO SCH (17:15)
--- NOTE | 2018-07-30 18:17 | PN ---
Progress Note - Progress Note Date of Service: 07/30/18 - Pulm f/u note Note: Pt seen and examined at bedside. Pt reports feeling slightly better. Coughing lot of phleghm Active Medications Generic Name Dose Route Start Last Admin Trade Name Freq PRN Reason Stop Dose Admin Albuterol 2.5 mg 07/29/18 03:23 Ventolin 2.5 Mg/3 Ml Neb.Deborah* INH Q4H PRN WHEEZING Albuterol/Ipratropium 1 neb 07/29/18 11:00 07/30/18 15:40 Duoneb (Albuterol 2.5 Mg/Ipratropium 0.5 Mg) INH 1 neb [id number] AWAKE [facility] Administration Atorvastatin Calcium 80 mg 07/30/18 21:00 Lipitor* PO BEDTIME [facility] Dextrose 12.5 gm 07/29/18 03:39 D50w Syringe 50 Ml* IV PUSH .FOR FS < 60 - SS PRN FS < 60 Fluticasone Propionate 2 spray 07/29/18 09:00 07/30/18 07:40 Flonase Nasal [place] 50mcg* BOTH NARES 2 spray DAILY [facility] Administration Furosemide 40 mg 07/29/18 09:00 07/30/18 07:42 Lasix Tab* PO 40 mg DAILY [facility] Administration Guaifenesin 600 mg 07/29/18 03:23 07/29/18 04:45 Mucinex* PO 600 mg BID PRN Administration congestion Insulin Human Lispro 0 units 07/29/18 07:30 07/30/18 17:15 Humalog* SUBCUT 3 units ACHS [facility] Administration Protocol Lisinopril 40 mg 07/29/18 09:00 07/30/18 07:41 Prinivil Tab* PO 40 mg DAILY [facility] Administration Metformin HCl 1,000 mg 07/29/18 09:00 07/30/18 07:42 Glucophage* PO 1,000 mg BID [facility] Administration Methylprednisolone Sodium Succinate 40 mg 07/30/18 16:00 07/30/18 17:15 Solu-Medrol 40 Mg IV 40 mg Q12H [facility] Administration Mometasone Furoate/Formoterol Fumar 2 puff 07/29/18 09:00 07/30/18 08:05 Dulera 200/5 Mdi* INH 2 puff BID [facility] Administration Montelukast Sodium 10 mg 07/29/18 09:00 04/17/19 07:42 Singulair Tab* PO 10 mg DAILY [facility] Administration Nicotine 10 mg 07/29/18 03:41 Nicotine Inhaler* INH Q2H PRN CRAVING Pto:Vicks Nasal 1 dose 07/30/18 05:07 BOTH NARES DAILY PRN CONGESTION Pantoprazole Sodium 40 mg 07/29/18 09:00 07/30/18 07:42 Protonix Tab* PO 40 mg BID [facility] Administration Sotalol HCl 120 mg 07/29/18 09:00 07/30/18 07:40 Betapace Tab* PO 120 mg BID [facility] Administration Tiotropium [place] 1 cap 07/29/18 09:00 07/30/18 08:05 Spiriva Cap.Inh* INH 1 cap DAILY [facility] Administration Warfarin Sodium 2.5 mg 08/01/18 17:00 Coumadin Tab(*) PO MoFr@1700 [facility] Protocol Warfarin Sodium 5 mg 07/29/18 17:00 07/30/18 17:15 Coumadin Tab(*) PO 5 mg SuTuWeThSa@1700 [facility] Administration Protocol Vital Signs Temp Pulse Resp BP Pulse Ox 97.5 F 63 16 108/51 96 07/30/18 15:58 07/30/18 15:58 07/30/18 15:58 07/30/18 15:58 07/30/18 15:58 O/E: Pt in NAD, sititng up in bed HEENT: PERRLA,no JVD Lungs: Diminished air entry, wheeze+ CVS: S1, S2+ Abd: Obese, BS+ Ext: Edema+, normal ROM Neuro: No focal deficits Skin: No rash Laboratory Results - last 24 hr 07/29/18 07/30/18 07/30/18 20:13 05:42 05:42 WBC 17.1 H RBC 3.40 L Hgb 10.6 L Hct 33 L MCV 96 H MCH 31 MCHC 33 RDW 15 Plt Count 222 MPV 7.9 Neut % (Auto) 78.0 Lymph % (Auto) 12.5 [place] % (Auto) 9.1 Eos % (Auto) 0.1 Baso % (Auto) 0.3 Absolute Neuts (auto) 13.4 H Absolute Lymphs (auto) 2.1 Absolute Monos (auto) 1.6 H Absolute Eos (auto) 0 Absolute Basos (auto) 0.1 Absolute Nucleated RBC 0 Nucleated RBC % 0 Sodium 142 Potassium 4.4 Chloride 109 Carbon Dioxide 26 Anion Gap 7 BUN 38 H Creatinine 1.28 H Est GFR ( Amer) 65.8 Est GFR (Non-Af Amer) 54.4 BUN/Creatinine Ratio 29.7 H Glucose 124 H POC Glucose (mg/dL) 201 H Calcium 9.4 07/30/18 07/30/18 07/30/18 07:21 11:54 16:43 WBC RBC Hgb Hct MCV MCH MCHC RDW Plt Count MPV Neut % (Auto) Lymph % (Auto) [place] % (Auto) Eos % (Auto) Baso % (Auto) Absolute Neuts (auto) Absolute Lymphs (auto) Absolute Monos (auto) Absolute Eos (auto) Absolute Basos (auto) Absolute Nucleated RBC Nucleated RBC % Sodium Potassium Chloride Carbon Dioxide Anion Gap BUN Creatinine Est GFR ( Amer) Est GFR (Non-Af Amer) BUN/Creatinine Ratio Glucose POC Glucose (mg/dL) 123 H 150 H 182 H Calcium I/R: 78 yo male with COPD on 2L NC at home, KALEB on CPAP, paroxysmal afib on warfarin, DMT2, and HTN who presents with increasing shortness of breath and sputum production, was dx with acute COPD exacerbation Acute COPD exacerbation- improving Still has significant wheeze Changed steroids to IV and at higher dose c/w nebs q 4hrs Encouraged pt to use flutter device Ambulate as tolerated DVT px
[2018-07-30] MEDS ORDERED: Atorvastatin* 80 MG TAB PO SCH (21:00)
[2018-07-31] MEDS: Albuterol/Ipratropium NEB.SOL* Albuterol 2.5 MG/Ipratropium 0.5 MG 3 ML INH SCH ×4 (03:56→15:58)
[2018-07-31] MEDS: methylPREDNISolone SOD 40 MG* 1 ML VIAL IV SCH (04:37)
[2018-07-31 07:03] LABS: ABS Basophils 0 10^3/ul (0-0.2); ABS Eosinophils 0 10^3/ul (0-0.6); ABS Lymphocytes 1.3 10^3/ul (1.0-4.8); ABS Neutrophils 14.9 10^3/ul (1.5-7.7); ABS Nucleated RBC 0 10^3/ul; Eosinophil % 0 %; Hematocrit 35 % (36-46); Hemoglobin 11.6 g/dL (14.0-18.0); Lymphocyte % 7.4 %; Mean Corpuscular HGB Conc 33 g/dL (31-36); Mean Corpuscular Hemoglobin 32 pg (27-31); Mean Corpuscular Volume 95 fL (80-94); Mean Platelet Volume 7.6 fL (7.4-10.4); Nucleated Red Blood Cells % 0; Platelet Count 241 10^3/uL (150-450); Red Blood Count 3.67 10^6 /uL (4.18-5.48); Red Cell Distribution Width 15 % (10.5-15); White Blood Count 17.2 10^3/uL (3.5-10.8)
[2018-07-31 07:26] LABS: BUN/Creatinine Ratio 32.5 (8-20); Calcium 9.8 mg/dL (8.6-10.3); EGFR African American 75.2 (>60); EGFR Non-African American 62.1 (>60)
[2018-07-31] MEDS: Tiotropium CAP.INH* CAP.INH/18 MCG (USE ORDER SET !) INH SCH (08:22)
[2018-07-31] MEDS: Mometasone/Formoter 200/5 MDI INH SCH (08:24)
[2018-07-31 09:22] LABS: INR 2.75 (0.77-1.02)
[2018-07-31] MEDS: Insulin LISPRO* 1 UNITS UNIT SUBCUT SCH ×3 (09:27→17:20)
[2018-07-31] MEDS: metFORMIN* 1,000 MG TAB PO SCH (09:28)
[2018-07-31] MEDS: Fluticasone NASAL SPRAY 50MCG* 16 gm SPRAY BTL BOTH NARES SCH (09:28)
[2018-07-31] MEDS: Furosemide TAB* 40 MG PO SCH (09:28)
[2018-07-31] MEDS: Montelukast Sodium TAB* 10 MG PO SCH (09:28)
[2018-07-31] MEDS: Pantoprazole TAB * 40 MG TAB PO SCH (09:28)
[2018-07-31] MEDS: Lisinopril TAB* 10 MG PO SCH (09:29)
[2018-07-31] MEDS: Sotalol TAB* 80 MG PO SCH (09:29)
[2018-07-31] MEDS ORDERED: Furosemide IV* 10 MG/ML 2 ML VIAL (20 MG) IV ONE (12:24)
[2018-07-31 13:53] VITALS: BP 122/64
[2018-07-31] MEDS: Warfarin TAB(*) 5 MG PO SCH (17:19)
--- NOTE | 2018-07-31 23:45 | DS ---
CC: Dr. Terrazas; Dr. Iliana Maya * DISCHARGE SUMMARY: DATE OF ADMISSION: 07/29/18 DATE OF DISCHARGE: 07/31/18 PROVIDER: BRITTNEY Arriola ATTENDING PHYSICIAN: Dr. Frannie Lopez * (dictated by BRITTNEY Arriola). PRIMARY CARE PROVIDER: Dr. Terrazas. CONSULTED TRUCK RENTAL CLERK: Dr. Iliana Maya. PRIMARY DIAGNOSIS: Chronic obstructive pulmonary disease exacerbation. SECONDARY DIAGNOSES: 1. Chronic obstructive pulmonary disease, on home oxygen 2 to 3 L. 2. Obstructive sleep apnea, on CPAP. 3. Hypertension. 4. Gastroesophageal reflux disease. 5. Hyperlipidemia. 6. Paroxysmal atrial fibrillation, on anticoagulation. 7. Anxiety. 8. Chronic low back pain. 9. Diabetes mellitus, type 2. 10. Chronic kidney disease, stage 2 to 3. 11. Heart failure with reduced ejection fraction. STUDIES: Chest x-ray on 07/28/18, impression: Hyperinflation consistent with COPD. No active cardiopulmonary disease. Chest CT on 07/29/18, impression: The CT appearance favors chronic obstructive pulmonary disease and emphysema with coronary artery hypertension. Coronary artery calcifications. Cardiomegaly. Chest x-ray on 07/31/18, impression: No active cardiopulmonary disease. EKG on 07/28/18, irregularly irregular rhythm with P waves present. Left bundle - branch block. Venous Doppler of left lower extremity on 07/30/18, no evidence for deep venous thrombosis. PERTINENT LAB DATA: White blood cell count 14.3 on admission. Hemoglobin A1c 7.2. INR 2.75 on day of discharge. DISCHARGE MEDICATIONS: 1. Roflumilast 250 mcg p.o. daily. 2. Nicotine inhaler 10 mg inhaled q.2 hours p.r.n. cravings. 3. Prednisone 60 mg x3 days, 50 mg x3 days, 40 mg x3 days, 30 mg x3 days, 20 mg x3 days, 10 mg x3 days, then discontinue. Continued home medications: 1. Albuterol inhaler 3 mL nebulized q.4 hours p.r.n. shortness of breath or wheezing. 2. Fluticasone nasal spray 2 sprays both nares daily. 3. Advair 1 puff inhaled b.i.d. 4. Lasix 40 mg p.o. daily. 5. Mucinex 600 mg p.o. b.i.d. p.r.n. 6. Ketoconazole 2% cream 1 application topically b.i.d. 7. Lisinopril 40 mg p.o. daily. 8. Singulair 10 mg p.o. daily. 9. Omeprazole 40 mg p.o. b.i.d. 10. Metformin 1000 mg p.o. b.i.d. 11. Sotalol 120 mg p.o. b.i.d. 12. Spiriva 1 cap inhaled daily. 13. Ventolin 2 puffs inhaled q.6 hours p.r.n. shortness of breath or wheezing. 14. Coumadin 2.5 mg p.o. Saturday and Saturday. 15. Coumadin 5 mg p.o. Saturday, Saturday, Saturday, , Saturday. 16. Lipitor 80 mg p.o. daily. HISTORY OF PRESENT ILLNESS/HOSPITAL COURSE: Jose Luis Garcia is a 78-year-old white male with past medical history significant for COPD, on home oxygen; KALEB, on CPAP; hypertension; GERD, who presented to the emergency department with 3 days of worsening shortness of breath. He was using nebulizers at home, which did not improve the shortness of breath. He was recently hospitalized for a COPD exacerbation and discharged on 06/12/18 from [facility] and did finish his prescription of azithromycin and the tapered prednisone and was continuing use of home medication. He was admitted to the hospital and treated for a COPD exacerbation. During his stay, he was started on scheduled nebulizer treatments and oral prednisone. He was not improving with oral prednisone. Dr. Maya, the spice mixer, did recommend increasing steroids to IV and he was receiving 40 mg of Solu-Medrol b.i.d. Patient remained for several days quite rhonchorous with extensive wheezing throughout. On the day of discharge, the patient had minimal crackles in the bilateral lung bases, which were new and possibly masked by wheezing in previous lung exams. Chest x- ray was repeated to reveal there was an underlying pulmonary edema and IV diuretics were given in addition to his home p.o. Lasix. He was evaluated later in the afternoon on the date of discharge and his lungs sounded quite clear with very minimal expiratory wheezing and the patient did report that he was feeling returned to his baseline with his normal productive cough with white sputum and was on 2 L of oxygen. The patient was able to ambulate and maintain saturation over 90% on 2 L of oxygen. During his discharge, his sputum collection was collected and found to have normal nestor. During his stay , to further manage his COPD, his home inhalers of Spiriva and Advair were continued in addition to his Singulair. Additionally during his stay to manage his diabetes, his home metformin was continued in addition to lispro sliding scale. He was frequently hyperglycemic during his hospital stay likely due to the high dose of steroids. He does have an A1c of 7.2 indicating moderately good management of his hyperglycemia confirming that this was likely due to steroids. The patient was allowed to use his home Vicks nasal spray in addition to steroid nasal spray. It is of note that the patient initially was not permitted to use this spray and he had rebound nasal congestion, which did make a difficult for him to respire via nose and utilize the nasal cannula. For management of his atrial fibrillation, his home scheduled warfarin and his home sotalol was continued. The patient was without rapid rate or symptoms during his stay. As for his GERD, patient does mention that he frequently has upper abdominal pain after meals multiple times per week despite his 40 mg of p.o. b.i.d. omeprazole. For management of his hypertension, his home lisinopril was continued and he was normotensive throughout his stay. For management of his heart failure with decreased ejection fraction, his home furosemide and sotalol were continued. REVIEW OF SYSTEMS: All pertinent positives and negatives are above in the HPI and the patient's all other systems were negative. PHYSICAL EXAMINATION: General: Obese white male, sitting outside of hospital bed, appearing in no acute distress with 2 L nasal cannula. Daughter and at the bedside. Eyes: PERRL. Sclerae anicteric, EOMI. ENT: Mucous membranes are moist. Neck: Supple without JVD. Cardio: Irregular rhythm consistent with atrial fibrillation. Regular rate. No murmurs auscultated. Lungs: Very minimal expiratory wheezing in lower lung range elder bilaterally. Lungs otherwise clear at the time of discharge. Abdomen: Abdomen is obese, soft, nontender, nondistended. Extremities: Trace edema to the bilateral lower extremities. Neuro: The patient is alert and oriented x3. The patient is pleasant and cooperative. No focal deficits. DISCHARGE PLAN: Diet: The patient is to return to carbohydrate consistent diet. DIET: The patient is to return to his normal activity as tolerated with oxygen. The patient has been started on roflumilast for treatment of his COPD on discharge. This medication was not initiated inpatient as this medicine is nonformulary. After 4 weeks of taking 250 mcg daily, he needs to be increased to 500 mcg daily by his primary care provider. He is to continue taking oral steroids and taper as directed as described above. Smoking cessation was discussed heavily throughout this admission as it is believed to be the aggravator of this COPD exacerbation as the patient has continued to smoke. He was provided with nicotine inhaler prescription at discharge. The patient was advised to follow up with his primary care provider within less than a week to discuss this hospitalization and to follow up with new prescriptions. It is advised at this time that he has his potassium rechecked as he was in the upper level of normal at the time of discharge. During his hospital stay, the patient denied visiting nursing services to assist him with his medical management, which was of concern as the patient is illiterate. His family including his daughter and son have decided to help the patient more frequently. The patient and his caregivers were also advised to check his blood sugar before breakfast and before dinner while the patient is taking prednisone as his blood sugar has been elevated likely secondary to receiving steroids. The patient and his caregiver were advised to call his PCP's office if blood sugar is above 260 or if he is experiencing symptoms of hyperglycemia. Additionally, the patient was advised to come to the emergency department if shortness of breath worsened despite oxygen if developing difficulty breathing or experiencing chest pain. Finally, it is of note that this patient has been using Vicks nasal spray, which contains oxymetazoline. I do suspect that this patient has rhinitis medicamentosa. It is up to the discretion of the PCP to discuss cessation of using this medication and the possibility of other decongestants and steroid nasal sprays. It is acknowledged that the patient is unable to have sinus surgery due to his underlying medical risk factors complicating possibility of receiving surgery. CONDITION ON DISCHARGE: Stable. THOMAS SPENT: Approximately 55 minutes was spent on this discharge, approximately half of this time was spent at the bedside. [place]AGE [place], [place] [id number]/[facility] #: [id number] BELINDA
[2018-08-01] MEDS ORDERED: predniSONE TAB* 20 MG PO SCH (09:00)
[2018-08-01] MEDS ORDERED: Warfarin TAB(*) 2.5 MG PO SCH (17:00)
== END 2018-07-31 17:35 | disposition home or self-care (01) | DRG 190 ==
LOC: ED 19:37 → MEDTELE 07-29 03:21 → OBSVTOIN 07-30 14:00
PROVIDERS: ADMIT Internal Medicine; ATTEND Internal Medicine
PROC: 5A09357 Assistance with Respiratory Ventilation, Less than 24 Consecutive Hours, Continuous Positive Airway Pressure (ICD-10-PCS; principal; 2018-07-28)
DX: J44.1 Chronic obstructive pulmonary disease with (acute) exacerbation (principal); J96.21 Acute and chronic respiratory failure with hypoxia; I13.0 Hypertensive heart and chronic kidney disease with heart failure and stage 1 through stage 4 chronic kidney disease, or unspecified chronic kidney disease; I50.20 Unspecified systolic (congestive) heart failure; G47.33 Obstructive sleep apnea (adult) (pediatric); K21.9 Gastro-esophageal reflux disease without esophagitis; E78.5 Hyperlipidemia, unspecified; I48.0 Paroxysmal atrial fibrillation; F41.9 Anxiety disorder, unspecified; G89.29 Other chronic pain; M54.5 Low back pain; E11.22 Type 2 diabetes mellitus with diabetic chronic kidney disease; N18.3 Chronic kidney disease, stage 3 (moderate); H91.90 Unspecified hearing loss, unspecified ear; I44.7 Left bundle-branch block, unspecified; E11.65 Type 2 diabetes mellitus with hyperglycemia; T38.0X5A Adverse effect of glucocorticoids and synthetic analogues, initial encounter; Y92.239 Unspecified place in hospital as the place of occurrence of the external cause; E66.9 Obesity, unspecified; F17.210 Nicotine dependence, cigarettes, uncomplicated; I44.4 Left anterior fascicular block; J32.9 Chronic sinusitis, unspecified; J31.0 Chronic rhinitis; M19.90 Unspecified osteoarthritis, unspecified site; E78.00 Pure hypercholesterolemia, unspecified; Z79.84 Long term (current) use of oral hypoglycemic drugs; Z88.0 Allergy status to penicillin; Z99.81 Dependence on supplemental oxygen; Z82.49 Family history of ischemic heart disease and other diseases of the circulatory system
CPT/HCPCS: 36415; 71045; 71046; 71250; 80048; 80053; 82803; 83036; 83880; 84484; 85025; 85610; 87040; 87070; 87205; 93005; 94640; 94660; 99284; A9270-GY; J1940; J2920; J2930; J3475; J7512; J7611

== ENCOUNTER 2020-11-02 11:42 | Inpatient (IN) ==
[2020-11-02] MEDS ORDERED: Albuterol/Ipratropium NEB.SOL (2.5/0.5 MG) 3 ML NEB.SOLN INH ONE (11:52)
[2020-11-02] MEDS ORDERED: methylPREDNISolone 125 mg 2 ML VIAL IV ONE (11:52)
[2020-11-02 12:06] LABS: Hematocrit 45 % (42-52); Hemoglobin 14.9 g/dL (14.0-18.0); Mean Corpuscular HGB Conc 33 g/dL (31-36); Mean Corpuscular Hemoglobin 32 pg (27-31); Mean Corpuscular Volume 95 fL (80-94); Platelet Count 292 10^3/uL (150-450); Red Blood Count 4.73 10^6 /uL (4.18-5.48); Red Cell Distribution Width 15 % (10-15); White Blood Count 18.8 10^3/uL (3.5-10.8)
[2020-11-02 12:14] LABS: INR 1.76 (0.86-1.15)
[2020-11-02 12:24] LABS: Albumin 3.9 g/dL (3.2-5.2); Albumin/Globulin Ratio 1.3 (1-3); C Reactive Protein 2.26 mg/L (<8.01); Calcium 9.7 mg/dL (8.6-10.3); EGFR Non-African American 35.6 (>60); Globulin 3.1 g/dL (2-4); Potassium 4.2 mmol/L (3.5-5.0); Total Bilirubin 0.5 mg/dL (0.2-1.0)
[2020-11-02] MEDS ORDERED: Azithromycin 500 mg/250 ml NS 500 MG/250 ML BAG IVPB ONE (12:32)
[2020-11-02] MEDS ORDERED: cefTRIAXone 1 gm/50 mL NS BAG 1 GM/50 ML BAG IV ONE (12:32)
[2020-11-02 12:47] LABS: ABS Eosinophils 0.1 10^3/ul (0-0.6); ABS Lymphocytes 2.7 10^3/ul (1.0-4.8); ABS Monocytes 2.3 10^3/ul (0-0.8); ABS Neutrophils 13.6 10^3/ul (1.5-7.7); Eosinophil % 0.3 %; Lymphocyte % 14.6 %
[2020-11-02 12:59] LABS: Influenza A Molecular Negative (Negative); Influenza B Molecular Negative (Negative)
[2020-11-02] MEDS ORDERED: Warfarin per PHARMACY **NOTE FOLLOW UP SCH (16:00)
[2020-11-02] MEDS ORDERED: Albuterol/Ipratropium NEB.SOL (2.5/0.5 MG) 3 ML NEB.SOLN INH PRN (16:58)
[2020-11-02] MEDS ORDERED: Lactated Ringers 500 ml BAG 500 ML IV ONE ×2 (16:59→20:04)
[2020-11-02] MEDS ORDERED: Dextrose 50% Syringe 50 ml 25 GM/50 ML SYRINGE IV PUSH PRN (17:04)
[2020-11-02] MEDS: CMCS:Roflumilast 500 mcg TAB (NF) PO SCH (17:25)
[2020-11-02] MEDS: Warfarin DAILY REMINDER **NOTE FOLLOW UP SCH (17:27)
[2020-11-02] MEDS ORDERED: Albuterol/Ipratropium NEB.SOL (2.5/0.5 MG) 3 ML NEB.SOLN INH SCH ×2 (18:00→19:00)
[2020-11-02] MEDS: Albuterol/Ipratropium NEB.SOL (2.5/0.5 MG) 3 ML NEB.SOLN INH SCH (19:14)
[2020-11-02] MEDS ORDERED: Albuterol HFA INHALER 8 gm MDI INH PRN (21:05)
[2020-11-02] MEDS: Mometasone/Formoter 200/5 MDI INH SCH (21:08)
[2020-11-02 23:34] LABS: Calcium 9.4 mg/dL (8.6-10.3); EGFR African American 41.5 (>60); EGFR Non-African American 34.3 (>60); Potassium 4.7 mmol/L (3.5-5.0)
[2020-11-03] MEDS ORDERED: Lactated Ringers 500 ml BAG 500 ML IV ONE ×4 (01:17→16:51)
[2020-11-03 04:54] LABS: ABS Lymphocytes 0.6 10^3/ul (1.0-4.8); ABS Monocytes 0.5 10^3/ul (0-0.8); ABS Neutrophils 13.8 10^3/ul (1.5-7.7); Hematocrit 41 % (42-52); Hemoglobin 13.6 g/dL (14.0-18.0); Lymphocyte % 4.2 %; Mean Corpuscular HGB Conc 33 g/dL (31-36); Mean Corpuscular Hemoglobin 32 pg (27-31); Mean Corpuscular Volume 96 fL (80-94); Platelet Count 225 10^3/uL (150-450); Red Blood Count 4.26 10^6 /uL (4.18-5.48); Red Cell Distribution Width 15 % (10-15); White Blood Count 14.9 10^3/uL (3.5-10.8)
[2020-11-03 04:57] LABS: INR 1.81 (0.86-1.15)
[2020-11-03 05:08] LABS: Calcium 9.1 mg/dL (8.6-10.3); EGFR African American 48.8 (>60); EGFR Non-African American 40.3 (>60); Potassium 4.6 mmol/L (3.5-5.0)
[2020-11-03] MEDS: Albuterol/Ipratropium NEB.SOL (2.5/0.5 MG) 3 ML NEB.SOLN INH SCH ×6 (05:39→23:06)
[2020-11-03] MEDS ORDERED: Lactated Ringers 1000 ml BAG 500 ML IV ONE (06:00)
[2020-11-03] MEDS: Mometasone/Formoter 200/5 MDI INH SCH ×2 (07:20→19:22)
[2020-11-03] MEDS: CMCS:Roflumilast 500 mcg TAB (NF) PO SCH (07:30)
[2020-11-03] MEDS ORDERED: Azelastine 0.1% Nasal (NF) 30 ML BTL BOTH NARES SCH (09:00)
[2020-11-03] MEDS ORDERED: Perflutren Lipid Microsphere 3 ML VIAL ONE (10:39)
[2020-11-03] MEDS: cefTRIAXone 1 gm/50 mL NS BAG 1 GM/50 ML BAG IVPB SCH (12:59)
[2020-11-03] MEDS: Azithromycin 500 mg/250 ml NS 500 MG/250 ML BAG IVPB SCH (15:09)
[2020-11-03] MEDS: Nicotine PATCH 14 MG/24 HR PATCH TRANSDERM SCH (15:14)
[2020-11-03] MEDS: Warfarin DAILY REMINDER **NOTE FOLLOW UP SCH (17:23)
[2020-11-03 19:12] LABS: Calcium 9.1 mg/dL (8.6-10.3); EGFR African American 52.1 (>60); Potassium 4.8 mmol/L (3.5-5.0)
[2020-11-03] MEDS ORDERED: Lactated Ringers 1000 ml BAG 1,000 ML IV SCH (20:00)
[2020-11-03] MEDS: Insulin GLARGINE 100 un/ml 10 ml VIAL SUBCUT SCH (21:05)
[2020-11-04 00:44] LABS: Calcium 9.2 mg/dL (8.6-10.3); Potassium 4.3 mmol/L (3.5-5.0)
[2020-11-04 00:50] LABS: EGFR African American 61.5 (>60); EGFR Non-African American 50.9 (>60)
[2020-11-04] MEDS ORDERED: Lactated Ringers 1000 ml BAG 500 ML IV ONE (02:12)
[2020-11-04] MEDS: Albuterol/Ipratropium NEB.SOL (2.5/0.5 MG) 3 ML NEB.SOLN INH SCH ×4 (03:49→19:04)
[2020-11-04 06:14] LABS: Hematocrit 40 % (42-52); Hemoglobin 13.3 g/dL (14.0-18.0); Mean Corpuscular HGB Conc 33 g/dL (31-36); Mean Corpuscular Hemoglobin 31 pg (27-31); Mean Corpuscular Volume 94 fL (80-94); Mean Platelet Volume 6.7 fL (7.4-10.4); Platelet Count 209 10^3/uL (150-450); Red Blood Count 4.26 10^6 /uL (4.18-5.48); Red Cell Distribution Width 15 % (10-15); White Blood Count 18.4 10^3/uL (3.5-10.8)
[2020-11-04 06:21] LABS: INR 2.19 (0.86-1.15)
[2020-11-04 06:30] LABS: Calcium 9.1 mg/dL (8.6-10.3); EGFR African American 68.5 (>60); EGFR Non-African American 56.6 (>60); Potassium 4.2 mmol/L (3.5-5.0)
[2020-11-04 06:31] LABS: ABS Lymphocytes 1.7 10^3/ul (1.0-4.8); ABS Monocytes 1.6 10^3/ul (0-0.8); Eosinophil % 0.1 %; Lymphocyte % 9.1 %
[2020-11-04 06:41] LABS: PCO2 Arterial 36 mmHg (35-45); PO2 Arterial 77 mmHg (80-100)
[2020-11-04] MEDS: Mometasone/Formoter 200/5 MDI INH SCH ×3 (06:58→20:40)
[2020-11-04] MEDS: Fluticasone NASAL SPRAY 50MCG 16 gm SPRAY BTL BOTH NARES SCH (10:10)
[2020-11-04] MEDS: CMCS:Roflumilast 500 mcg TAB (NF) PO SCH (10:11)
[2020-11-04] MEDS: Nicotine PATCH 14 MG/24 HR PATCH TRANSDERM SCH (10:14)
[2020-11-04] MEDS: Polyethylene Glycol 3350 17 GM PACKET PO SCH (10:20)
[2020-11-04] MEDS: cefTRIAXone 1 gm/50 mL NS BAG 1 GM/50 ML BAG IVPB SCH (13:35)
[2020-11-04] MEDS: Azithromycin 500 mg/250 ml NS 500 MG/250 ML BAG IVPB SCH (15:35)
[2020-11-04] MEDS: Warfarin DAILY REMINDER **NOTE FOLLOW UP SCH (17:08)
[2020-11-04] MEDS: Insulin GLARGINE 100 un/ml 10 ml VIAL SUBCUT SCH (20:53)
[2020-11-04] MEDS ORDERED: Senna TAB 8.6 mg TAB PO SCH (21:00)
[2020-11-05] MEDS: Albuterol/Ipratropium NEB.SOL (2.5/0.5 MG) 3 ML NEB.SOLN INH SCH ×3 (02:44→13:12)
[2020-11-05 06:54] LABS: INR 2.36 (0.86-1.15)
[2020-11-05] MEDS: Mometasone/Formoter 200/5 MDI INH SCH (07:10)
[2020-11-05 07:11] LABS: Calcium 9.1 mg/dL (8.6-10.3); EGFR African American 68.5 (>60); EGFR Non-African American 56.6 (>60); Potassium 4.1 mmol/L (3.5-5.0)
[2020-11-05] MEDS: Nicotine PATCH 14 MG/24 HR PATCH TRANSDERM SCH (09:12)
[2020-11-05] MEDS: Fluticasone NASAL SPRAY 50MCG 16 gm SPRAY BTL BOTH NARES SCH (09:14)
[2020-11-05] MEDS: Polyethylene Glycol 3350 17 GM PACKET PO SCH (09:15)
[2020-11-05] MEDS: CMCS:Roflumilast 500 mcg TAB (NF) PO SCH (09:15)
[2020-11-05] MEDS: cefTRIAXone 1 gm/50 mL NS BAG 1 GM/50 ML BAG IVPB SCH (12:21)
[2020-11-05] MEDS: Azithromycin 500 mg/250 ml NS 500 MG/250 ML BAG IVPB SCH (13:12)
[2020-11-05 13:15] VITALS: BP 116/61
== END 2020-11-05 15:48 | disposition home or self-care (01) | DRG 191 ==
LOC: ED 11:42 → MED 11:42
PROVIDERS: ADMIT Internal Medicine; ATTEND Internal Medicine

== ENCOUNTER 2021-04-17 17:43 | Observation (INO) ==
[2021-04-17] MEDS ORDERED: Albuterol HFA INHALER 8 gm MDI INH ONE (21:11)
[2021-04-17] MEDS ORDERED: methylPREDNISolone 125 mg 2 ML VIAL IV ONE (21:12)
[2021-04-17] MEDS ORDERED: DOXYcycline 100 MG in NS 0.9% 250 ml 250 ML IVPB ONE (21:48)
[2021-04-17] MEDS ORDERED: NS 0.9% 250 ml 250 ML ONE (22:25)
[2021-04-17 22:32] LABS: Hematocrit 40 % (42-52); Hemoglobin 13.4 g/dL (14.0-18.0); Mean Corpuscular HGB Conc 34 g/dL (31-36); Mean Corpuscular Hemoglobin 31 pg (27-31); Mean Corpuscular Volume 91 fL (80-94); Mean Platelet Volume 7.9 fL (7.4-10.4); Platelet Count 303 10^3/uL (150-450); Red Blood Count 4.34 10^6 /uL (4.18-5.48); Red Cell Distribution Width 15 % (10-15); White Blood Count 22.5 10^3/uL (3.5-10.8)
[2021-04-17 22:39] LABS: INR 1.76 (0.86-1.15)
[2021-04-17 22:40] LABS: Urine Appearance Cloudy; Urine Bilirubin Negative (Negative); Urine Blood Negative (Negative); Urine Color Yellow; Urine Glucose 3+(>=500 mg/dL) (Negative); Urine Ketones Negative (Negative); Urine Nitrite Negative (Negative); Urine Protein 1+(30 mg/dL) (Negative); Urine Specific Gravity 1.017 (1.002-1.030); Urine Urobilinogen Negative (Negative)
[2021-04-17 22:43] LABS: Urine Bacteria Absent (Absent); Urine Red Blood Cell Absent (Absent); Urine Squamous Epithelial Cell Present (Absent); Urine White Blood Cell 2+(11-20/hpf) (Absent)
[2021-04-17 22:49] LABS: ALT 17 U/L (7-52); Albumin 3.9 g/dL (3.2-5.2); Alkaline Phosphatase 83 U/L (35-149); Blood Urea Nitrogen 39 mg/dL (6-24); CO2 Carbon Dioxide 24 mmol/L (22-32); Calcium 9.2 mg/dL (8.6-10.3); Chloride 98 mmol/L (101-111); Creatine Kinase 40 U/L (10-223); Globulin 3.8 g/dL (2-4); Glucose 194 mg/dL (70-100); Sodium 134 mmol/L (135-145); Total Protein 7.7 g/dL (6.4-8.9); eGFR CKD-EPI 32.5 (>60)
[2021-04-17 22:56] LABS: Troponin I 0.03 ng/mL (<0.03)
[2021-04-17 22:57] LABS: ABS Basophils 0.1 10^3/ul (0-0.2); ABS Lymphocytes 1.6 10^3/ul (1.0-4.8); ABS Monocytes 1.7 10^3/ul (0-0.8); ABS Neutrophils 19.2 10^3/ul (1.5-7.7)
[2021-04-17 23:13] LABS: Anion Gap 12 mmol/L (2-11)
[2021-04-18 00:26] LABS: Magnesium 1.9 mg/dL (1.9-2.7); Potassium Redraw 4.5 mmol/L (3.5-5.0)
[2021-04-18] MEDS ORDERED: Albuterol/Ipratropium NEB.SOL (2.5/0.5 MG) 3 ML NEB.SOLN INH PRN (03:45)
[2021-04-18] MEDS ORDERED: Dextrose 50% Syringe 50 ml 25 GM/50 ML SYRINGE IV PUSH PRN (03:47)
[2021-04-18 03:57] LABS: C Reactive Protein 132.76 mg/L (<8.01)
[2021-04-18] MEDS ORDERED: Warfarin per PHARMACY **NOTE FOLLOW UP SCH (04:00)
[2021-04-18 05:09] LABS: Hematocrit 40 % (42-52); Hemoglobin 13.3 g/dL (14.0-18.0); Mean Corpuscular HGB Conc 34 g/dL (31-36); Mean Corpuscular Hemoglobin 31 pg (27-31); Mean Corpuscular Volume 92 fL (80-94); Mean Platelet Volume 7.5 fL (7.4-10.4); Platelet Count 249 10^3/uL (150-450); Red Blood Count 4.32 10^6 /uL (4.18-5.48); Red Cell Distribution Width 15 % (10-15); White Blood Count 19.9 10^3/uL (3.5-10.8)
[2021-04-18] MEDS ORDERED: Azithromycin 500 mg/250 mL NS IVPB ONE (05:19)
[2021-04-18 05:25] LABS: ABS Lymphocytes 0.5 10^3/ul (1.0-4.8); ABS Monocytes 0.4 10^3/ul (0-0.8); ABS Neutrophils 18.9 10^3/ul (1.5-7.7); Lymphocyte % 2.7 %; Nucleated Red Blood Cells % 0.1
[2021-04-18 05:26] LABS: Calcium 9.1 mg/dL (8.6-10.3); Potassium 4.7 mmol/L (3.5-5.0); eGFR CKD-EPI 33.3 (>60)
[2021-04-18] MEDS ORDERED: Lactated Ringers 1000 ml BAG 1,000 ML IV SCH (07:00)
[2021-04-18] MEDS ORDERED: Albuterol/Ipratropium NEB.SOL (2.5/0.5 MG) 3 ML NEB.SOLN INH SCH ×2 (07:00→11:00)
[2021-04-18] MEDS: NON FORMULARY MED (Tiotropium Bromide [Spiriva With Handihaler] 18 mcg capsule, w/inhalati INH SCH ×2 (09:05→12:11)
[2021-04-18] MEDS: Albuterol HFA INHALER 8 gm MDI INH SCH ×2 (15:25→21:07)
[2021-04-18] MEDS: Nystatin TOP POWDER 15 GM BTL TOPICAL SCH (22:06)
[2021-04-19] MEDS ORDERED: Albuterol HFA INHALER 8 gm MDI INH PRN (00:14)
[2021-04-19] MEDS: cefTRIAXone 1 gm/50 mL NS BAG 1 GM/50 ML BAG IVPB SCH (05:30)
[2021-04-19] MEDS ORDERED: Azithromycin 500 mg/250 ml NS 500 MG/250 ML BAG IVPB SCH (06:00)
[2021-04-19] MEDS ORDERED: cefTRIAXone 1 gm/50 mL NS BAG 1 GM/50 ML BAG IVPB SCH (06:00)
[2021-04-19 06:01] LABS: Hematocrit 38 % (42-52); Hemoglobin 12.8 g/dL (14.0-18.0); Mean Corpuscular HGB Conc 33 g/dL (31-36); Mean Corpuscular Hemoglobin 31 pg (27-31); Mean Corpuscular Volume 92 fL (80-94); Mean Platelet Volume 7.3 fL (7.4-10.4); Platelet Count 271 10^3/uL (150-450); Red Blood Count 4.16 10^6 /uL (4.18-5.48); Red Cell Distribution Width 15 % (10-15); White Blood Count 22.5 10^3/uL (3.5-10.8)
[2021-04-19 06:03] LABS: ABS Monocytes 1.4 10^3/ul (0-0.8); ABS Neutrophils 20.2 10^3/ul (1.5-7.7); Lymphocyte % 4.3 %
[2021-04-19 06:11] LABS: Calcium 9.1 mg/dL (8.6-10.3); Magnesium 2.2 mg/dL (1.9-2.7); Potassium 4.3 mmol/L (3.5-5.0)
[2021-04-19 06:13] LABS: INR 1.63 (0.86-1.15)
[2021-04-19 06:17] LABS: eGFR CKD-EPI 37.1 (>60)
[2021-04-19] MEDS: Nystatin TOP POWDER 15 GM BTL TOPICAL SCH ×2 (08:38→20:04)
[2021-04-19] MEDS: Insulin GLARGINE 100 un/ml 10 ml VIAL SUBCUT SCH (09:04)
[2021-04-19] MEDS: SPIRIVA Respimat (tiotropium) 2.5 mcg/inh Inhaler INH SCH (09:39)
[2021-04-19] MEDS ORDERED: Dextrose 50% Syringe 50 ml 25 GM/50 ML SYRINGE IV PUSH PRN (10:05)
[2021-04-20 04:56] LABS: Hematocrit 38 % (42-52); Hemoglobin 12.4 g/dL (14.0-18.0); Mean Corpuscular HGB Conc 33 g/dL (31-36); Mean Corpuscular Hemoglobin 31 pg (27-31); Mean Corpuscular Volume 93 fL (80-94); Mean Platelet Volume 7.4 fL (7.4-10.4); Platelet Count 276 10^3/uL (150-450); Red Blood Count 4.06 10^6 /uL (4.18-5.48); Red Cell Distribution Width 15 % (10-15); White Blood Count 17.2 10^3/uL (3.5-10.8)
[2021-04-20 05:01] LABS: ABS Lymphocytes 1.9 10^3/ul (1.0-4.8); ABS Monocytes 1.7 10^3/ul (0-0.8); ABS Neutrophils 13.6 10^3/ul (1.5-7.7); Eosinophil % 0.1 %; Lymphocyte % 11.1 %
[2021-04-20 05:16] LABS: Calcium 8.8 mg/dL (8.6-10.3); Magnesium 2.3 mg/dL (1.9-2.7); Potassium 3.9 mmol/L (3.5-5.0); eGFR CKD-EPI 38.6 (>60)
[2021-04-20 05:19] LABS: INR 2.07 (0.86-1.15)
[2021-04-20] MEDS ORDERED: Potassium Chlor 20 meq TAB.ER PO ONE (06:23)
[2021-04-20] MEDS: cefTRIAXone 1 gm/50 mL NS BAG 1 GM/50 ML BAG IVPB SCH (06:29)
[2021-04-20] MEDS ORDERED: Benzocaine/Menthol LOZ MT PRN (06:31)
[2021-04-20] MEDS: Insulin GLARGINE 100 un/ml 10 ml VIAL SUBCUT SCH (08:51)
[2021-04-20] MEDS: Nystatin TOP POWDER 15 GM BTL TOPICAL SCH (08:53)
[2021-04-20] MEDS: SPIRIVA Respimat (tiotropium) 2.5 mcg/inh Inhaler INH SCH (08:59)
[2021-04-20 11:32] VITALS: BP 138/72
[2021-04-20] MEDS ORDERED: Warfarin DAILY REMINDER **NOTE FOLLOW UP SCH (17:00)
== END 2021-04-20 11:25 | disposition home or self-care (01) ==
LOC: ED 17:43 → EDHOLD 17:43 → SUATTDRO 04-18 03:42 → MED 04-18 10:41 → MEDTELE 04-20 00:50 → MED 04-20 01:05
PROVIDERS: ADMIT Internal Medicine; ATTEND Student in an Organized Health Care Education/Training Program

== ENCOUNTER 2022-01-02 10:03 | Inpatient (IN) ==
[2022-01-02] MEDS ORDERED: methylPREDNISolone SOD SUCC 125 mg 2 ML VIAL IV ONE (10:20)
[2022-01-02] MEDS ORDERED: Albuterol/Ipratropium NEB.SOL (2.5/0.5 MG) 3 ML NEB.SOLN INH ONE ×2 (10:20→12:12)
[2022-01-02 10:44] LABS: ABS Basophils 0.1 10^3/ul (0-0.2); ABS Eosinophils 0.3 10^3/ul (0-0.6); ABS Lymphocytes 1.9 10^3/ul (1.0-4.8); ABS Monocytes 1.2 10^3/ul (0-0.8); ABS Neutrophils 9.9 10^3/ul (1.5-7.7); Eosinophil % 2.5 %; Hematocrit 40 % (42-52); Mean Corpuscular HGB Conc 33 g/dL (31-36); Mean Corpuscular Hemoglobin 31 pg (27-31); Mean Corpuscular Volume 94 fL (80-94); Platelet Count 327 10^3/uL (150-450); Red Blood Count 4.26 10^6 /uL (4.18-5.48); Red Cell Distribution Width 15 % (10-15); White Blood Count 13.4 10^3/uL (3.5-10.8)
[2022-01-02 10:53] LABS: INR 3.92 (0.89-1.11)
[2022-01-02 11:37] LABS: Albumin 3.7 g/dL (3.2-5.2); C Reactive Protein 22.78 mg/L (<8.01); Calcium 9.4 mg/dL (8.6-10.3); Globulin 3.6 g/dL (2-4); Potassium 4.7 mmol/L (3.5-5.0); Total Bilirubin 0.5 mg/dL (0.2-1.0); Total Protein 7.3 g/dL (6.4-8.9)
[2022-01-02 12:05] LABS: High Sensitivity Troponin 1 Hr 8 pg/mL (<20)
[2022-01-02] MEDS ORDERED: cefTRIAXone 1 gm/50 mL D5W 1 GM/50 ML BAG IV ONE (12:11)
[2022-01-02] MEDS ORDERED: Azithromycin 500 mg/250 ml NS 500 MG/250 ML BAG IVPB ONE (12:11)
[2022-01-02] MEDS ORDERED: Dextrose 50% Syringe 50 ml 25 GM/50 ML SYRINGE IV PUSH PRN (14:45)
[2022-01-02] MEDS ORDERED: Albuterol HFA INHALER 8 gm MDI INH PRN (14:46)
[2022-01-02] MEDS ORDERED: Warfarin per PHARMACY **NOTE FOLLOW UP SCH (15:00)
[2022-01-02] MEDS ORDERED: Warfarin - No Order Today **NOTE FOLLOW UP ONE (17:00)
[2022-01-02] MEDS: Albuterol HFA INHALER 8 gm MDI INH SCH (19:45)
[2022-01-02] MEDS: Albuterol/Ipratropium NEB.SOL (2.5/0.5 MG) 3 ML NEB.SOLN INH PRN ×2 (20:19→23:46)
[2022-01-02] MEDS ORDERED: Benzocaine/Menthol LOZ MT PRN (21:25)
[2022-01-03] MEDS: Albuterol HFA INHALER 8 gm MDI INH SCH ×2 (01:05→07:13)
[2022-01-03 06:14] LABS: ABS Lymphocytes 0.9 10^3/ul (1.0-4.8); ABS Monocytes 0.5 10^3/ul (0-0.8); ABS Neutrophils 14.7 10^3/ul (1.5-7.7); Hematocrit 41 % (42-52); Hemoglobin 13.1 g/dL (14.0-18.0); Lymphocyte % 5.8 %; Mean Corpuscular HGB Conc 32 g/dL (31-36); Mean Corpuscular Hemoglobin 30 pg (27-31); Mean Corpuscular Volume 94 fL (80-94); Platelet Count 307 10^3/uL (150-450); Red Blood Count 4.32 10^6 /uL (4.18-5.48); Red Cell Distribution Width 15 % (10-15); White Blood Count 16.2 10^3/uL (3.5-10.8)
[2022-01-03 06:25] LABS: INR 2.84 (0.89-1.11)
[2022-01-03 06:48] LABS: Calcium 9.8 mg/dL (8.6-10.3); eGFR CKD-EPI 40.3 (>60)
[2022-01-03 06:49] LABS: Potassium 5.2 mmol/L (3.5-5.0)
[2022-01-03] MEDS: Albuterol/Ipratropium NEB.SOL (2.5/0.5 MG) 3 ML NEB.SOLN INH PRN (07:12)
[2022-01-03] MEDS ORDERED: Albuterol HFA INHALER 8 gm MDI INH PRN (09:32)
[2022-01-03 13:56] LABS: Calcium 9.7 mg/dL (8.6-10.3); Potassium 4.6 mmol/L (3.5-5.0)
[2022-01-03] MEDS: Albuterol 2.5mg/3 ml (0.083%) NEB.SOLN INH SCH ×3 (15:25→23:32)
[2022-01-03] MEDS: Insulin GLARGINE 100 un/ml 10 ml VIAL SUBCUT SCH (20:22)
[2022-01-04] MEDS: Albuterol 2.5mg/3 ml (0.083%) NEB.SOLN INH SCH ×6 (03:48→22:14)
[2022-01-04 05:55] LABS: INR 2.79 (0.89-1.11)
[2022-01-04 05:57] LABS: ABS Monocytes 1.3 10^3/ul (0-0.8); ABS Neutrophils 14.4 10^3/ul (1.5-7.7); Hematocrit 39 % (42-52); Hemoglobin 12.9 g/dL (14.0-18.0); Lymphocyte % 11.3 %; Mean Corpuscular HGB Conc 33 g/dL (31-36); Mean Corpuscular Hemoglobin 31 pg (27-31); Mean Corpuscular Volume 93 fL (80-94); Mean Platelet Volume 7.3 fL (7.4-10.4); Platelet Count 331 10^3/uL (150-450); Red Cell Distribution Width 15 % (10-15); White Blood Count 17.7 10^3/uL (3.5-10.8)
[2022-01-04 06:15] LABS: Calcium 9.3 mg/dL (8.6-10.3); eGFR CKD-EPI 40.3 (>60)
[2022-01-04] MEDS ORDERED: Warfarin per PHARMACY **NOTE FOLLOW UP SCH (17:00)
[2022-01-04] MEDS: Insulin GLARGINE 100 un/ml 10 ml VIAL SUBCUT SCH (20:44)
[2022-01-04] MEDS ORDERED: AZELASTINE INTRANASAL SCH (21:00)
[2022-01-04] MEDS: PTO: Azelastine 0.1% Nasal (NF) 30 ML BTL BOTH NARES SCH (21:03)
[2022-01-05] MEDS: Albuterol 2.5mg/3 ml (0.083%) NEB.SOLN INH SCH ×4 (02:56→20:25)
[2022-01-05 06:28] LABS: ABS Eosinophils 0.1 10^3/ul (0-0.6); ABS Lymphocytes 2.5 10^3/ul (1.0-4.8); ABS Monocytes 1.4 10^3/ul (0-0.8); ABS Neutrophils 8.6 10^3/ul (1.5-7.7); Eosinophil % 0.5 %; Hematocrit 41 % (42-52); Hemoglobin 13.2 g/dL (14.0-18.0); Lymphocyte % 19.7 %; Mean Corpuscular HGB Conc 32 g/dL (31-36); Mean Corpuscular Hemoglobin 30 pg (27-31); Mean Corpuscular Volume 93 fL (80-94); Mean Platelet Volume 7.2 fL (7.4-10.4); Nucleated Red Blood Cells % 0.1; Platelet Count 306 10^3/uL (150-450); Red Blood Count 4.38 10^6 /uL (4.18-5.48); Red Cell Distribution Width 15 % (10-15); White Blood Count 12.6 10^3/uL (3.5-10.8)
[2022-01-05 06:31] LABS: INR 3.05 (0.89-1.11)
[2022-01-05 06:57] LABS: Blood Urea Nitrogen 61 mg/dL (6-24); CO2 Carbon Dioxide 22 mmol/L (22-32); Calcium 9.1 mg/dL (8.6-10.3); Chloride 103 mmol/L (101-111); Glucose 158 mg/dL (70-100); Sodium 139 mmol/L (135-145); eGFR CKD-EPI 39.7 (>60)
[2022-01-05 07:02] LABS: Anion Gap 14 mmol/L (2-11)
[2022-01-05] MEDS: PTO: Azelastine 0.1% Nasal (NF) 30 ML BTL BOTH NARES SCH (08:45)
[2022-01-05] MEDS ORDERED: CEFTRIAXONE 1 GM IVPB SCH (10:00)
[2022-01-05] MEDS ORDERED: cefTRIAXone 1 gm/50 mL D5W 1 GM/50 ML BAG IV SCH (10:00)
[2022-01-05 11:46] LABS: Urine Appearance Clear; Urine Bilirubin Negative (Negative); Urine Blood Negative (Negative); Urine Color Straw; Urine Glucose 2+(150 mg/dL) (Negative); Urine Ketones Negative (Negative); Urine Nitrite Negative (Negative); Urine Protein Negative (Negative); Urine Specific Gravity 1.006 (1.002-1.030); Urine Urobilinogen Negative (Negative)
[2022-01-05 18:38] VITALS: BP 108/49
== END 2022-01-05 17:10 | disposition home or self-care (01) | DRG 191 ==
LOC: EDHOLD 10:03 → ED 10:03 → MEDTELE 14:00
PROVIDERS: ADMIT Internal Medicine; ATTEND Internal Medicine

== ENCOUNTER 2022-06-24 19:57 | Inpatient (IN) ==
[2022-06-24] MEDS ORDERED: Albuterol/Ipratropium NEB.SOL (2.5/0.5 MG) 3 ML NEB.SOLN INH ONE ×2 (20:25→21:58)
[2022-06-24] MEDS ORDERED: Magnesium Sulfate 2 gm BAG 2 GM/50 ML BAG IVPB ONE (20:25)
[2022-06-24] MEDS ORDERED: methylPREDNISolone SOD SUCC 125 mg 2 ML VIAL IV ONE (20:25)
[2022-06-24 20:58] LABS: ABS Basophils 0.1 10^3/ul (0-0.2); ABS Eosinophils 0.3 10^3/ul (0-0.6); ABS Lymphocytes 1.7 10^3/ul (1.0-4.8); ABS Monocytes 1.3 10^3/ul (0-0.8); ABS Neutrophils 10.5 10^3/ul (1.5-7.7); Eosinophil % 2.3 %; Hematocrit 39 % (42-52); Hemoglobin 12.4 g/dL (14.0-18.0); Lymphocyte % 12.2 %; Mean Corpuscular HGB Conc 32 g/dL (31-36); Mean Corpuscular Hemoglobin 31 pg (27-31); Mean Corpuscular Volume 96 fL (80-94); Platelet Count 291 10^3/uL (150-450); Red Blood Count 4.02 10^6 /uL (4.18-5.48); Red Cell Distribution Width 17 % (10-15); White Blood Count 13.8 10^3/uL (3.5-10.8)
[2022-06-24 21:07] LABS: INR 2.39 (0.88-1.18)
[2022-06-24 21:33] LABS: Albumin 3.5 g/dL (3.2-5.2); Albumin/Globulin Ratio 1.3 (1-3); C Reactive Protein 14.31 mg/L (<8.01); Calcium 9.2 mg/dL (8.6-10.3); Creatinine, Serum 2.02 mg/dL (0.67-1.17); Globulin 2.7 g/dL (2-4); Potassium 3.8 mmol/L (3.5-5.0); Total Bilirubin 0.3 mg/dL (0.2-1.0); Total Protein 6.2 g/dL (6.4-8.9); eGFR CKD-EPI 32.3 (>60)
[2022-06-24 22:28] LABS: PCO2 Arterial 33 mmHg (35-45); PO2 Arterial 100 mmHg (80-100)
[2022-06-24 22:34] LABS: High Sensitivity Troponin 1 Hr 16 pg/mL (<20)
[2022-06-24] MEDS ORDERED: Warfarin per PHARMACY **NOTE FOLLOW UP SCH (23:45)
[2022-06-24] MEDS ORDERED: Dextrose 50% Syringe 50 ml 25 GM/50 ML SYRINGE IV PUSH PRN (23:54)
[2022-06-25] MEDS: Albuterol HFA INHALER 8 gm MDI INH SCH ×5 (03:28→19:17)
[2022-06-25 05:16] LABS: ABS Lymphocytes 0.5 10^3/ul (1.0-4.8); ABS Monocytes 0.1 10^3/ul (0-0.8); ABS Neutrophils 12.1 10^3/ul (1.5-7.7); Eosinophil % 0.1 %; Hematocrit 37 % (42-52); Hemoglobin 12.1 g/dL (14.0-18.0); Lymphocyte % 3.7 %; Mean Corpuscular HGB Conc 33 g/dL (31-36); Mean Corpuscular Hemoglobin 31 pg (27-31); Mean Corpuscular Volume 95 fL (80-94); Mean Platelet Volume 7.2 fL (7.4-10.4); Platelet Count 268 10^3/uL (150-450); Red Blood Count 3.88 10^6 /uL (4.18-5.48); Red Cell Distribution Width 17 % (10-15); White Blood Count 12.7 10^3/uL (3.5-10.8)
[2022-06-25 05:26] LABS: INR 2.34 (0.88-1.18)
[2022-06-25 06:20] LABS: Calcium 9.2 mg/dL (8.6-10.3); Creatinine, Serum 2.12 mg/dL (0.67-1.17); Potassium 4.1 mmol/L (3.5-5.0); eGFR CKD-EPI 30.5 (>60)
[2022-06-25] MEDS: methylPREDNISolone SOD SUCC 40 mg/ml 1 ml VIAL IV SCH ×2 (10:48→19:44)
[2022-06-25] MEDS: NF: DAPAGLIFLOZIN 10 MG TAB (NF) PO SCH (10:59)
[2022-06-25] MEDS: FLUTICAS/UMECLI/VILANT 200-62.5-25 MDI (NF) INH SCH (11:51)
[2022-06-25] MEDS ORDERED: Albuterol HFA INHALER 8 gm MDI INH PRN (19:10)
[2022-06-25] MEDS: Albuterol 2.5mg/3 ml (0.083%) NEB.SOLN INH PRN (19:25)
[2022-06-26] MEDS: Albuterol 2.5mg/3 ml (0.083%) NEB.SOLN INH PRN ×3 (02:40→20:44)
[2022-06-26] MEDS: Albuterol HFA INHALER 8 gm MDI INH SCH ×3 (02:42→07:37)
[2022-06-26 06:26] LABS: ABS Lymphocytes 0.8 10^3/ul (1.0-4.8); ABS Monocytes 0.8 10^3/ul (0-0.8); ABS Neutrophils 15.2 10^3/ul (1.5-7.7); Hematocrit 35 % (42-52); Hemoglobin 11.4 g/dL (14.0-18.0); Lymphocyte % 4.7 %; Mean Corpuscular HGB Conc 33 g/dL (31-36); Mean Corpuscular Hemoglobin 31 pg (27-31); Mean Corpuscular Volume 94 fL (80-94); Mean Platelet Volume 6.9 fL (7.4-10.4); Platelet Count 259 10^3/uL (150-450); Red Blood Count 3.69 10^6 /uL (4.18-5.48); Red Cell Distribution Width 17 % (10-15); White Blood Count 16.8 10^3/uL (3.5-10.8)
[2022-06-26 06:28] LABS: INR 3.04 (0.88-1.18)
[2022-06-26 06:58] LABS: Calcium 8.8 mg/dL (8.6-10.3); Creatinine, Serum 1.8 mg/dL (0.67-1.17); Potassium 3.7 mmol/L (3.5-5.0); eGFR CKD-EPI 37.1 (>60)
[2022-06-26] MEDS: FLUTICAS/UMECLI/VILANT 200-62.5-25 MDI (NF) INH SCH (07:33)
[2022-06-26] MEDS ORDERED: Insulin GLARGINE 100 un/ml 10 ml VIAL SUBCUT SCH ×2 (09:00)
[2022-06-26] MEDS: NF: DAPAGLIFLOZIN 10 MG TAB (NF) PO SCH (10:06)
[2022-06-26] MEDS ORDERED: Albuterol 2.5mg/3 ml (0.083%) NEB.SOLN INH SCH (16:00)
[2022-06-26] MEDS ORDERED: Warfarin DAILY REMINDER **NOTE FOLLOW UP SCH (17:00)
[2022-06-27 06:04] LABS: ABS Lymphocytes 1.6 10^3/ul (1.0-4.8); ABS Monocytes 1.2 10^3/ul (0-0.8); ABS Neutrophils 11.5 10^3/ul (1.5-7.7); Eosinophil % 0.1 %; Hematocrit 35 % (42-52); Hemoglobin 11.6 g/dL (14.0-18.0); Mean Corpuscular HGB Conc 33 g/dL (31-36); Mean Corpuscular Hemoglobin 31 pg (27-31); Mean Corpuscular Volume 95 fL (80-94); Mean Platelet Volume 7.2 fL (7.4-10.4); Nucleated Red Blood Cells % 0.1; Platelet Count 261 10^3/uL (150-450); Red Blood Count 3.73 10^6 /uL (4.18-5.48); Red Cell Distribution Width 17 % (10-15); White Blood Count 14.3 10^3/uL (3.5-10.8)
[2022-06-27 06:06] LABS: INR 3.8 (0.88-1.18)
[2022-06-27 06:19] LABS: Calcium 8.8 mg/dL (8.6-10.3); Creatinine, Serum 1.79 mg/dL (0.67-1.17); Potassium 3.7 mmol/L (3.5-5.0); eGFR CKD-EPI 37.4 (>60)
[2022-06-27] MEDS: Albuterol 2.5mg/3 ml (0.083%) NEB.SOLN INH PRN ×2 (07:33→12:48)
[2022-06-27] MEDS: FLUTICAS/UMECLI/VILANT 200-62.5-25 MDI (NF) INH SCH (07:33)
[2022-06-27] MEDS: NF: DAPAGLIFLOZIN 10 MG TAB (NF) PO SCH (09:03)
[2022-06-27 14:19] VITALS: BP 101/65
[2022-06-27] MEDS ORDERED: Warfarin - No Order Today **NOTE FOLLOW UP ONE (17:00)
== END 2022-06-27 15:35 | disposition home or self-care (01) | DRG 190 ==
LOC: ED 19:57 → EDHOLD 19:57 → MED 06-25 14:52
PROVIDERS: ADMIT Student in an Organized Health Care Education/Training Program; ATTEND Student in an Organized Health Care Education/Training Program

== ENCOUNTER 2022-10-25 16:23 | Inpatient (IN) ==
[2022-10-25 17:07] LABS: ABS Basophils 0.1 10^3/uL (0.0-0.1); ABS Eosinophils 0.3 10^3/uL (0.0-0.5); ABS Lymphocytes 1.9 10^3/uL (1.0-4.8); ABS Monocytes 1.1 10^3/uL (0.0-1.1); ABS Nucleated RBC 0.03 10^3/ul; Eosinophil % 2.2 %; Hematocrit 37.3 % (38-53); Hemoglobin 12.1 g/dL (13.2-16.3); Lymphocyte % 13.5 %; Mean Corpuscular Hemoglobin 30.5 pg (27-33); Mean Corpuscular Hgb Conc 32.4 g/dL (31-36); Mean Corpuscular Volume 93.9 fL (80-97); Mean Platelet Volume 7.8 fL (7.5-11.2); Nucleated Red Blood Cells % 0.2 /100 WBC (0.0-0.4); Platelet Count 325 10^3/uL (150-450); Red Blood Count 3.97 10^6/uL (4.06-5.63); Red Cell Distribution Width 16.3 % (12-17); White Blood Count 14.4 10^3/uL (3.6-10.2)
[2022-10-25 17:17] LABS: INR 3.94 (0.88-1.18)
[2022-10-25 17:24] LABS: Albumin 3.6 g/dL (3.2-5.2); Calcium 9.3 mg/dL (8.6-10.3); Creatinine, Serum 2.07 mg/dL (0.67-1.17); Globulin 3.5 g/dL (2-4); Magnesium 1.6 mg/dL (1.9-2.7); Potassium 3.5 mmol/L (3.5-5.0); Total Bilirubin 0.4 mg/dL (0.2-1.0); Total Protein 7.1 g/dL (6.4-8.9); eGFR CKD-EPI 31.4 (>60)
[2022-10-25] MEDS ORDERED: Magnesium Sulfate 2 gm BAG 2 GM/50 ML BAG IVPB ONE (17:59)
[2022-10-25] MEDS ORDERED: Furosemide 40 mg/4 ml IV VIAL IV SLOW PU ONE (18:01)
[2022-10-25 18:37] LABS: High Sensitivity Troponin 1 Hr 18 pg/mL (<20)
[2022-10-25] MEDS ORDERED: Albuterol HFA INHALER 8 gm MDI INH PRN (18:51)
[2022-10-25] MEDS ORDERED: Dextrose 50% Syringe 50 ml 25 GM/50 ML SYRINGE IV PUSH PRN (19:13)
[2022-10-25] MEDS ORDERED: Iodixanol (CONTRAST) 320 MG/ML 100 ML SDV IV ONE (19:26)
[2022-10-25] MEDS ORDERED: Iodixanol (CONTRAST) 320 MG/ML 100 ML SDV IV SCH (20:00)
[2022-10-25] MEDS ORDERED: Atropine 1 MG/ML INJ 1 ML VIAL IV PUSH PRN (20:52)
[2022-10-25 21:00] LABS: C Reactive Protein 17.77 mg/L (<8.01)
[2022-10-25] MEDS ORDERED: Warfarin per PHARMACY **NOTE FOLLOW UP SCH (21:00)
[2022-10-25] MEDS ORDERED: Atropine 0.1 MG/ML 10 ml SYR (1 mg) IV PUSH PRN (21:20)
[2022-10-26] MEDS: Nystatin TOP POWDER 15 GM BTL TOPICAL SCH ×3 (01:47→19:58)
[2022-10-26 05:40] LABS: ABS Basophils 0.1 10^3/uL (0.0-0.1); ABS Eosinophils 0.3 10^3/uL (0.0-0.5); ABS Lymphocytes 2.1 10^3/uL (1.0-4.8); ABS Monocytes 1.2 10^3/uL (0.0-1.1); ABS Nucleated RBC 0.01 10^3/ul; Eosinophil % 2.1 %; Hematocrit 35.7 % (38-53); Hemoglobin 11.8 g/dL (13.2-16.3); Lymphocyte % 14.3 %; Mean Corpuscular Hemoglobin 30.8 pg (27-33); Mean Corpuscular Hgb Conc 33.2 g/dL (31-36); Mean Platelet Volume 7.8 fL (7.5-11.2); Nucleated Red Blood Cells % 0.1 /100 WBC (0.0-0.4); Platelet Count 310 10^3/uL (150-450); Red Blood Count 3.84 10^6/uL (4.06-5.63); Red Cell Distribution Width 16.8 % (12-17); White Blood Count 14.7 10^3/uL (3.6-10.2)
[2022-10-26 05:46] LABS: INR 3.69 (0.88-1.18)
[2022-10-26 05:55] LABS: Calcium 9.2 mg/dL (8.6-10.3); Creatinine, Serum 2.15 mg/dL (0.67-1.17); Magnesium 1.9 mg/dL (1.9-2.7); Potassium 3.5 mmol/L (3.5-5.0)
[2022-10-26] MEDS ORDERED: Magnesium Sulfate 2 gm BAG 2 GM/50 ML BAG IVPB ONE (06:52)
[2022-10-26] MEDS ORDERED: Sulfur Hexaflouride MICROSPHR 25 MG VIAL ONE (09:00)
[2022-10-26] MEDS: CMCS: FLUTICAS/UMECLI/VILANT 200-62.5-25 MDI (NF) INH SCH (09:28)
[2022-10-26] MEDS: Albuterol 2.5mg/3 ml (0.083%) NEB.SOLN INH PRN ×2 (10:28→22:44)
[2022-10-26] MEDS ORDERED: Warfarin - No Order Today **NOTE FOLLOW UP ONE (17:00)
[2022-10-26 17:21] LABS: INR 3.48 (0.88-1.18)
[2022-10-26] MEDS ORDERED: Lactated Ringers 1000 ml BAG 1,000 ML IV ONE (20:09)
[2022-10-26] MEDS ORDERED: Lactated Ringers 1000 ml BAG 1,000 ML IV SCH (21:00)
[2022-10-26 23:06] LABS: INR 3.3 (0.88-1.18)
[2022-10-27 07:37] LABS: Urine Appearance Clear; Urine Bilirubin Negative (Negative); Urine Blood Negative (Negative); Urine Color Yellow; Urine Glucose 1+(50 mg/dL) (Negative); Urine Ketones Negative (Negative); Urine Nitrite Negative (Negative); Urine Protein Negative (Negative); Urine Specific Gravity 1.031 (1.002-1.030); Urine Urobilinogen Negative (Negative)
[2022-10-27] MEDS: CMCS: FLUTICAS/UMECLI/VILANT 200-62.5-25 MDI (NF) INH SCH (07:58)
[2022-10-27] MEDS: Albuterol 2.5mg/3 ml (0.083%) NEB.SOLN INH PRN (08:03)
[2022-10-27] MEDS: Warfarin DAILY REMINDER **NOTE FOLLOW UP SCH (08:38)
[2022-10-27] MEDS: Nystatin TOP POWDER 15 GM BTL TOPICAL SCH ×2 (08:40→20:22)
[2022-10-27 10:01] LABS: ABS Basophils 0.1 10^3/uL (0.0-0.1); ABS Eosinophils 0.2 10^3/uL (0.0-0.5); ABS Lymphocytes 1.3 10^3/uL (1.0-4.8); ABS Monocytes 1.1 10^3/uL (0.0-1.1); ABS Neutrophils 10.8 10^3/uL (1.5-7.6); ABS Nucleated RBC 0.01 10^3/ul; Eosinophil % 1.3 %; Hematocrit 34.1 % (38-53); Hemoglobin 11.3 g/dL (13.2-16.3); Lymphocyte % 9.8 %; Mean Corpuscular Hemoglobin 31.3 pg (27-33); Mean Corpuscular Volume 94.9 fL (80-97); Mean Platelet Volume 7.5 fL (7.5-11.2); Platelet Count 282 10^3/uL (150-450); White Blood Count 13.5 10^3/uL (3.6-10.2)
[2022-10-27 10:27] LABS: Creatinine, Serum 1.85 mg/dL (0.67-1.17); Potassium 3.5 mmol/L (3.5-5.0); eGFR CKD-EPI 35.9 (>60)
[2022-10-27] MEDS ORDERED: Warfarin - No Order Today **NOTE FOLLOW UP ONE (17:00)
[2022-10-27] MEDS ORDERED: Nicotine Lozenge mini 2 MG LOZNG.MINI MT PRN (17:34)
[2022-10-28 06:11] LABS: ABS Basophils 0.1 10^3/uL (0.0-0.1); ABS Eosinophils 0.3 10^3/uL (0.0-0.5); ABS Lymphocytes 1.4 10^3/uL (1.0-4.8); ABS Monocytes 1.4 10^3/uL (0.0-1.1); ABS Neutrophils 10.8 10^3/uL (1.5-7.6); ABS Nucleated RBC 0.01 10^3/ul; Hematocrit 34.5 % (38-53); Hemoglobin 11.4 g/dL (13.2-16.3); Lymphocyte % 10.3 %; Mean Corpuscular Hemoglobin 30.7 pg (27-33); Mean Corpuscular Hgb Conc 32.9 g/dL (31-36); Mean Corpuscular Volume 93.5 fL (80-97); Mean Platelet Volume 8.2 fL (7.5-11.2); Nucleated Red Blood Cells % 0.1 /100 WBC (0.0-0.4); Platelet Count 283 10^3/uL (150-450); Red Blood Count 3.69 10^6/uL (4.06-5.63); Red Cell Distribution Width 16.3 % (12-17); White Blood Count 13.9 10^3/uL (3.6-10.2)
[2022-10-28 06:19] LABS: INR 2.18 (0.88-1.18)
[2022-10-28 06:26] LABS: Calcium 8.9 mg/dL (8.6-10.3); Creatinine, Serum 1.82 mg/dL (0.67-1.17); Magnesium 2.2 mg/dL (1.9-2.7); Potassium 3.5 mmol/L (3.5-5.0); eGFR CKD-EPI 36.6 (>60)
[2022-10-28] MEDS: CMCS: FLUTICAS/UMECLI/VILANT 200-62.5-25 MDI (NF) INH SCH (07:16)
[2022-10-28] MEDS ORDERED: Potassium Chlor 20 meq TAB.ER PO ONE ×2 (07:53→12:53)
[2022-10-28] MEDS: Nystatin TOP POWDER 15 GM BTL TOPICAL SCH ×2 (09:24→19:59)
[2022-10-28] MEDS: Warfarin DAILY REMINDER **NOTE FOLLOW UP SCH ×2 (12:07→17:15)
[2022-10-28 15:25] LABS: Ferritin 235.8 ng/mL (24-336)
[2022-10-28] MEDS: Nicotine PATCH 21 MG/24 HR PATCH TRANSDERM SCH (15:44)
[2022-10-28] MEDS: Albuterol 2.5mg/3 ml (0.083%) NEB.SOLN INH PRN (19:33)
[2022-10-29 07:04] LABS: Hematocrit 33.5 % (38-53); Hemoglobin 11.1 g/dL (13.2-16.3); Mean Corpuscular Hemoglobin 31.4 pg (27-33); Mean Corpuscular Hgb Conc 33.1 g/dL (31-36); Mean Corpuscular Volume 94.9 fL (80-97); Platelet Count 283 10^3/uL (150-450); Red Blood Count 3.53 10^6/uL (4.06-5.63); Red Cell Distribution Width 17.1 % (12-17); White Blood Count 12.5 10^3/uL (3.6-10.2)
[2022-10-29 07:11] LABS: INR 1.82 (0.88-1.18)
[2022-10-29 07:18] LABS: Calcium 8.8 mg/dL (8.6-10.3); Creatinine, Serum 1.89 mg/dL (0.67-1.17); Potassium 4.3 mmol/L (3.5-5.0)
[2022-10-29] MEDS: CMCS: FLUTICAS/UMECLI/VILANT 200-62.5-25 MDI (NF) INH SCH (07:29)
[2022-10-29] MEDS: Albuterol 2.5mg/3 ml (0.083%) NEB.SOLN INH PRN (07:32)
[2022-10-29] MEDS: Nicotine PATCH 21 MG/24 HR PATCH TRANSDERM SCH (08:51)
[2022-10-29] MEDS: Nystatin TOP POWDER 15 GM BTL TOPICAL SCH (09:28)
[2022-10-29 11:03] VITALS: BP 134/79
== END 2022-10-29 14:20 | disposition home or self-care (01) | DRG 392 ==
LOC: EDHOLD 16:23 → ED 16:23 → SUATTDRO 18:47 → MEDTELE 20:46
PROVIDERS: ADMIT Student in an Organized Health Care Education/Training Program; ATTEND Internal Medicine